=== PATIENT | female | born 1990 | race Caucasian/White ===

== ENCOUNTER → 2017-11-25 14:25 | Outpatient (CLI) | payer OTHER, SELFPAY ==
[2017-11-25 13:52] VITALS: BP 147/90; BMI 24.1
[2017-11-25 16:34] LABS: hCG Titer Quant., Serum 328 mIU/mL (<9 non-preg)
== END ==
PROVIDERS: Visit Provider Obstetrics & Gynecology
DX: O20.0 Threatened abortion (principal)
CPT/HCPCS: 36415; 84702

== ENCOUNTER → 2017-11-27 12:22 | Outpatient (CLI) | payer OTHER, SELFPAY ==
[2017-11-27 13:42] LABS: hCG Titer Quant., Serum 718 mIU/mL (<9 non-preg)
== END ==
PROVIDERS: Visit Provider Obstetrics & Gynecology
DX: O20.0 Threatened abortion (principal)
CPT/HCPCS: 36415; 84702

== ENCOUNTER → 2017-12-06 09:02 | Outpatient (CLI) | payer OTHER, SELFPAY ==
[2017-12-06 09:14] VITALS: BP 118/87; PULSE 103; RESP 18; TEMP 37.3; BMI 23.2
[2017-12-06] MEDS: Dextrose 5%-Lactated Ringers 1,000 ML 999 ML IV (09:24)
[2017-12-06] MEDS: Ondansetron 4 MG/2 ML Vial IV (09:25)
== END ==
PROVIDERS: Visit Provider Obstetrics & Gynecology
DX: E86.0 Dehydration (principal)
CPT/HCPCS: 96361; 96374; A4216; J2405

== ENCOUNTER → 2017-12-23 15:09 | Outpatient (CLI) | payer OTHER, SELFPAY ==
[2017-12-23 15:48] LABS: Absolute Lymphocyte Count 1.45 X10^3/ul (0.83-4.51); Absolute Neutrophil Count 6.9 X10^3/uL (2.0-7.7); Basophil# 0.01 X10^3/uL; Basophil% 0.1 % (0-1); Eosinophil# 0.09 X10^3/uL; Hematocrit 40.3 % (37-47); Hemoglobin 13.6 g/dl (12.0-15.0); Lymphocyte # 1.45 X10^3/ul (4.0); Lymphocyte % 15.9 % (19-41); Mean Corp Hgb Conc 33.7 g/gl (32-36); Mean Corpuscular Hgb 27.3 pg (27.0-32.0); Mean Corpuscular Volume 80.9 fL (81-99); Monocyte# 0.63 X10^3/uL; Monocyte% 6.9 % (0-10); Neutrophil # 6.93 X10^3/uL (2.7-7.7); Platelet Count 214 K/mm3 (150-450); RBC Distribution Width CV 14.9 % (11.6-14.6); RBC Distribution Width SD 44.1 fl (35.1-43.9); Red Blood Count 4.98 M/mm3 (4.2-5.4); White Blood Count 9.1 K/mm3 (4.4-11.0)
[2017-12-23 15:55] LABS: POSITIVE COUNT NO; POSITIVE DIFFERENTIAL NO; POSITIVE MORPHOLOGY NO
[2017-12-23 17:08] LABS: HIV - WCH Non-Reactive (Nonreactive); Rubella IgG 217.5 IU/mL
[2017-12-30 02:58] LABS: Rapid Plasmin Reagin (RPR) NONREACTIVE (NONREACTIVE)
[2018-01-04 11:35] LABS: HEPATITIS B SURFACE AG Negative (Negative)
== END ==
PROVIDERS: Visit Provider Obstetrics & Gynecology
DX: O21.9 Vomiting of pregnancy, unspecified (principal); Z12.4 Encounter for screening for malignant neoplasm of cervix
CPT/HCPCS: 36415; 81220; 85025; 86592; 86703; 86762; 86850; 86900; 87340

== ENCOUNTER → 2017-12-23 21:03 | Outpatient (CLI) | payer OTHER, SELFPAY ==
[2017-12-23 23:00] LABS: Chlamydia Trachomatis by PCR Negative (Negative); Neisserai gonorrhoeae by PCR Negative (Negative); Probe Check PASS; Sample Adequacy Control PASS; Specimen Processing Control PASS
[2017-12-28 14:40] LABS: HPV Reflexed? NOT INDICATED
== END ==
PROVIDERS: Visit Provider Obstetrics & Gynecology
DX: O21.9 Vomiting of pregnancy, unspecified (principal); Z12.4 Encounter for screening for malignant neoplasm of cervix; Z3A.00 Weeks of gestation of pregnancy not specified
CPT/HCPCS: 87086; 87088; 87186; 87491; 87591; 88175; G0145

== ENCOUNTER → 2018-01-16 14:08 | Outpatient (CLI) | payer OTHER, SELFPAY | PROVIDERS: Visit Provider Obstetrics & Gynecology Maternal & Fetal Medicine | DX: Z36.82 Encounter for antenatal screening for nuchal translucency (principal) | CPT/HCPCS: 36415 ==

== ENCOUNTER 2018-01-29 16:55 | Emergency (ER) | payer OTHER, SELFPAY ==
[2018-01-29 16:57] VITALS: BP 163/102; PULSE 81; RESP 16; TEMP 36.8; O2SAT 100; BMI 24.5
[2018-01-29] MEDS: proMETHazine 25 MG/ML Syringe 12.5 MG IV (17:42)
[2018-01-29] MEDS: 0.9% Normal Saline 1,000 ML 1000 ML IV (17:42)
[2018-01-29 18:11] LABS: Absolute Lymphocyte Count 1.16 X10^3/ul (0.83-4.51); Basophil# 0.01 X10^3/uL; Basophil% 0.1 % (0-1); Eosinophil# 0.03 X10^3/uL; Eosinophils% 0.4 % (0-5); Hematocrit 39.3 % (37-47); Lymphocyte # 1.16 X10^3/ul (4.0); Mean Corp Hgb Conc 35.6 g/gl (32-36); Mean Corpuscular Hgb 28.7 pg (27.0-32.0); Mean Corpuscular Volume 80.5 fL (81-99); Mean Platelet Vol. 11.7 fl (6.2-12.0); Monocyte# 0.59 X10^3/uL; Monocyte% 7.6 % (0-10); Neutrophil # 5.95 X10^3/uL (2.7-7.7); Neutrophil % 76.8 % (47-70); Platelet Count 177 K/mm3 (150-450); RBC Distribution Width CV 14.9 % (11.6-14.6); RBC Distribution Width SD 43.5 fl (35.1-43.9); Red Blood Count 4.88 M/mm3 (4.2-5.4); White Blood Count 7.8 K/mm3 (4.4-11.0)
[2018-01-29 18:12] LABS: POSITIVE COUNT NO; POSITIVE DIFFERENTIAL NO; POSITIVE MORPHOLOGY NO
[2018-01-29 18:23] LABS: Anion Gap 9 (5-15); BUN 8 mg/dL (7-18); BUN/Creat Ratio 10.2 RATIO (10-20); Calcium,Total 8.7 mg/dL (8.5-10.1); Chloride 108 mmol/L (98-107); Creatinine, Serum 0.78 mg/dL (0.55-1.02); EST Glomerular Filtration Rate 93 mL/min (>60); Est Glom Filt Rate - Afr Amer 113 mL/min (>60); Estimated Creatinine Clearance 88.83 ml/min; Glucose 76 mg/dL (74-106); Potassium 3.8 mmol/L (3.5-5.1); Sodium Level 140 mmol/L (136-145)
--- NOTE | 2018-01-29 18:33 | ED.DCSUM_ITS ---
- ER Visit Summary Date of Service: 01/29/18 Chief Complaint: Vomiting History of Present Illness: The patient is a 27 F 14 weeks who presents with vomiting. Over the past 3 days she has vomited about twice per day. She denies any hematemesis. She denies any abdominal pain. She denies fever or diarrhea. She was also complaining of some right ear discomfort. She denies any pelvic pain vaginal bleeding or vaginal discharge. Physical Examination: Afebrile vitals are unremarkable Heart regular rate and rhythm Lungs are clear Abdomen soft nontender Sternum is nontender Alert Test Results: CBC BMP unremarkable. Emergency Department Course and Treatment: She was treated with IV fluids and Phenergan. Although her initial blood pressure was recorded as 163/102 when repeated it was 104/80. She has tolerated p.o. on reevaluation. 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 Treatment Plan: [] Disposition: Discharge Impression: Vomiting This note was generated with [employer] dictation software. It may contain incorrect words, spelling, and punctuation that were not noted in review of the chart prior to signing ED Disposition - Plan for ED Patient: Chief Complaint: Nausea/Vomiting Referrals: Mikaela Davidson NP-C [Primary Care Provider] -
--- NOTE | 2018-01-29 18:38 | DCINST.ED_ITS ---
ED Disposition - Plan for ED Patient: Chief Complaint: Nausea/Vomiting Instructions: ED Nausea Vomiting Prescriptions: proMETHazine suppository [Phenergan Suppository] 25 mg RECTAL Q6H PRN PRN #6 suppos. PRN Reason: Nausea Referrals: Mikaela Davidson, [employer]ICLE [employer]IVER-C [Primary Care Provider] -
[2018-01-29 18:39] VITALS: BP 104/80; PULSE 60; RESP 16
== END 2018-01-29 18:54 | disposition home or self-care (01) ==
PROVIDERS: Emergency Provider Emergency Medicine; Family Provider Nurse Practitioner Family; PCP Nurse Practitioner Family
DX: O21.9 Vomiting of pregnancy, unspecified (principal); Z3A.14 14 weeks gestation of pregnancy
CPT/HCPCS: 80048; 85025; 96361; 96374; 99284; J7030; A4216

== ENCOUNTER → 2018-02-03 14:07 | Outpatient (CLI) | payer OTHER, SELFPAY | PROVIDERS: Family Provider Nurse Practitioner Family; PCP Nurse Practitioner Family; Visit Provider Obstetrics & Gynecology | DX: Z34.02 Encounter for supervision of normal first pregnancy, second trimester (principal) | CPT/HCPCS: 87086; 87088 ==

== ENCOUNTER → 2018-02-08 08:58 | Outpatient (CLI) | payer OTHER, SELFPAY ==
[2018-02-08 09:07] VITALS: BP 107/71; PULSE 82; RESP 14; TEMP 36.6; BMI 24.3
[2018-02-08] MEDS: Ondansetron 4 MG/2 ML Vial IV (09:15)
[2018-02-08] MEDS: Dextrose 5%-Lactated Ringers 1,000 ML 1000 ML IV (09:15)
== END ==
LOC: MEDOUTP 09:00
PROVIDERS: Family Provider Nurse Practitioner Family; PCP Nurse Practitioner Family; Visit Provider Obstetrics & Gynecology
DX: E86.0 Dehydration (principal)
CPT/HCPCS: 96361; 96374; A4216; J2405

== ENCOUNTER → 2018-02-20 12:00 | Outpatient (CLI) | payer OTHER, SELFPAY | PROVIDERS: Family Provider Nurse Practitioner Family; PCP Nurse Practitioner Family; Visit Provider Obstetrics & Gynecology Maternal & Fetal Medicine | DX: Z36.89 Encounter for other specified antenatal screening (principal) | CPT/HCPCS: 36415 ==

== ENCOUNTER → 2018-03-10 13:21 | Outpatient (CLI) | payer OTHER, SELFPAY ==
--- NOTE | 2018-03-10 14:00 | US_ITS ---
STUDY: SECOND AND THIRD TRIMESTER OBSTETRICAL ULTRASOUND REASON FOR EXAM: Female, 27 years old. Anatomy screening SCREENING FOR MALIGNANT NEOPLASM OF CERVIX LMP: TECHNIQUE: Transabdominal and Transvaginal PRIOR ULTRASOUND: None. FINDINGS: There is a single intrauterine fetus. The fetus is in a breech presentation. There is demonstrated cardiac activity with a heart rate of 160 bpm. There is a normal amniotic fluid volume. The largest amniotic fluid pocket measures 5.5 cm. The placenta is posterior in location and is not low lying. There are Grade 1 placental changes. The cervix measures 3 9 mm in length. The adnexal regions are not visualized. BIOMETRY: BPD: 45mm: 19 weeks, 5 days HC: 166mm: 19 weeks, 2 days AC: 152mm: 20 weeks, 3 days FL: 31mm: 19 weeks, 4 days CI: 79 FL/BPD: 68 FL/HC: FL/AC: 20 HC/AC: 1.09 age by current US: 19 weeks, 6 days. SARATH by current US: 07.29.18. Estimated weight: 319 grams, +/- 47 grams, 39 %. Age by LMP: 20 weeks, 0 days. SARATH by LMP: .10.03. ANATOMY: Gender: Female Cranium: Normal lateral ventricles. Normal choroid plexus. Normal cerebellum. Normal cisterna magna. Normal face, nose and lips. Chest: Normal 4-chamber heart. Abdomen/Pelvis: Normal diaphragm. Normal stomach. Normal abdominal wall. Normal cord insertion. Normal 3 vessel cord. Normal kidneys. Normal bladder. Spine: Normal cervical spine. Normal thoracic spine. Normal lumbar spine. Normal sacrum. Extremities: Normal bilateral upper extremities. Normal bilateral lower extremities . US/OB Anatomy Scan IMPRESSION: There is a single live intrauterine with a heart rate of 160 bpm. age by current US: 19 weeks, 6 days. SARATH by current US: 07.29.18. Normal anatomic survey. Normal-appearing cervix. Electronically Signed: Fox Rivera MD at 16:18 EDT , Service support ,
== END ==
PROVIDERS: Family Provider Nurse Practitioner Family; PCP Nurse Practitioner Family; Visit Provider Obstetrics & Gynecology
DX: O21.9 Vomiting of pregnancy, unspecified (principal)
CPT/HCPCS: 76805

== ENCOUNTER → 2018-05-12 15:51 | Outpatient (CLI) | payer OTHER, SELFPAY ==
[2018-05-12 17:32] LABS: Absolute Lymphocyte Count 0.93 X10^3/ul (0.83-4.51); Absolute Neutrophil Count 6.2 X10^3/uL (2.0-7.7); Basophil# 0.01 X10^3/uL; Basophil% 0.1 % (0-1); Eosinophil# 0.04 X10^3/uL; Eosinophils% 0.5 % (0-5); Hematocrit 36.4 % (37-47); Hemoglobin 11.9 g/dl (12.0-15.0); Lymphocyte # 0.93 X10^3/ul (4.0); Lymphocyte % 12.2 % (19-41); Mean Corp Hgb Conc 32.7 g/gl (32-36); Mean Corpuscular Hgb 28.6 pg (27.0-32.0); Mean Corpuscular Volume 87.5 fL (81-99); Mean Platelet Vol. 11.7 fl (6.2-12.0); Monocyte# 0.45 X10^3/uL; Monocyte% 5.9 % (0-10); Neutrophil % 81.2 % (47-70); Platelet Count 194 K/mm3 (150-450); RBC Distribution Width CV 13.1 % (11.6-14.6); RBC Distribution Width SD 42.2 fl (35.1-43.9); Red Blood Count 4.16 M/mm3 (4.2-5.4); White Blood Count 7.6 K/mm3 (4.4-11.0)
[2018-05-12 17:33] LABS: Glucose Challenge Gest 1H 50g 140 mg/dL (70-140)
[2018-05-12 17:40] LABS: POSITIVE COUNT NO; POSITIVE DIFFERENTIAL NO; POSITIVE MORPHOLOGY NO
== END ==
LOC: LAB 15:52
PROVIDERS: Nurse Practitioner Women's Health; Family Provider Nurse Practitioner Family; PCP Nurse Practitioner Family; Visit Provider Obstetrics & Gynecology
DX: O09.892 Supervision of other high risk pregnancies, second trimester (principal); Z3A.29 29 weeks gestation of pregnancy
CPT/HCPCS: 82950; 85025; 86850; 86900

== ENCOUNTER → 2018-05-18 06:45 | Outpatient (CLI) | payer OTHER, SELFPAY ==
[2018-05-18 09:18] LABS: Glucose GTT-Gestation. Fasting 76 mg/dL (<105)
== END ==
PROVIDERS: Nurse Practitioner Women's Health; Family Provider Nurse Practitioner Family; PCP Nurse Practitioner Family; Visit Provider Obstetrics & Gynecology
DX: R73.09 Other abnormal glucose (principal)
CPT/HCPCS: 36415; 82951; 82952

== ENCOUNTER 2018-06-16 08:00 | Outpatient (RCR) | payer OTHER, SELFPAY | END 2018-06-16 23:59 | LOC: NS 08:00 | PROVIDERS: Family Provider Nurse Practitioner Family; PCP Nurse Practitioner Family; Visit Provider Obstetrics & Gynecology | DX: O24.419 Gestational diabetes mellitus in pregnancy, unspecified control (principal); Z71.3 Dietary counseling and surveillance | CPT/HCPCS: 97802; G0108 ==

== ENCOUNTER → 2018-06-28 11:11 | Outpatient (CLI) | payer OTHER, SELFPAY ==
--- NOTE | 2018-06-28 11:23 | US_ITS ---
STUDY: SECOND AND THIRD TRIMESTER OBSTETRICAL ULTRASOUND - LIMITED REASON FOR EXAM: Female, 27 years old. Routine survey. History of gestational diabetes. LMP: October 21, 2017. PRIOR ULTRASOUND: Comparison is made with prior examination dated March 10, 2018. TECHNIQUE: Transabdominal ultrasound evaluation was performed. FINDINGS: There is a single intrauterine fetus. The fetus is in a cephalic presentation. There is demonstrated cardiac activity with a heart rate of 136 bpm. There is a normal amniotic fluid volume. The largest amniotic fluid pocket measures 4.0 cm x 3.8 cm. The amniotic fluid index (SHALONDA) is 13.6 cm. The placenta is posterior in location and is not low lying. There are Grade 0 placental changes. The cervix was not well visualized due to the position. BIOMETRY: BPD: 9.0 cm: 36 weeks, 2 days HC: 31.3 cm: 35 weeks, 1 days AC: 31.7 cm: 35 weeks, 5 days FL: 6.9 cm: 35 weeks, 4 days Age by LMP: 35 weeks, 5 days. SARATH by LMP: July 28, 2018. age by prior US: 35 weeks, 4 days. SARATH by prior US: July 29, 2018. age by current US: 35 weeks, 5 days. SARATH by current US: July 28, 2018. Estimated weight: 2726 grams, +/- 398 grams, 47 percentile. Gender: Female The placental cord insertion is located along the superior edge of the placenta. US/OB Limited With Biometrics IMPRESSION: Single live intrauterine gestation with a mean gestational age of 35 weeks and 5 days. The measurements are obtained they fall within normal expected range. Electronically Signed: Luiz Weaver MD at 15:44 EDT Tel [phone], Service support ,
== END ==
PROVIDERS: Family Provider Nurse Practitioner Family; PCP Nurse Practitioner Family; Visit Provider Obstetrics & Gynecology
DX: O24.419 Gestational diabetes mellitus in pregnancy, unspecified control (principal); O26.899 Other specified pregnancy related conditions, unspecified trimester; R30.0 Dysuria; Z3A.00 Weeks of gestation of pregnancy not specified
CPT/HCPCS: 76816; 87086; 87088

== ENCOUNTER 2018-06-29 17:00 | Outpatient (RCR) | payer OTHER, SELFPAY | END 2018-06-29 23:59 | LOC: DC 17:00 | PROVIDERS: Family Provider Nurse Practitioner Family; PCP Nurse Practitioner Family; Visit Provider Obstetrics & Gynecology | DX: O24.419 Gestational diabetes mellitus in pregnancy, unspecified control (principal) ==

== ENCOUNTER → 2018-06-30 18:20 | Outpatient (CLI) | payer OTHER, SELFPAY ==
[2018-06-30 20:11] LABS: Group B Strep DNA By PCR Negative (Negative); Internal Control PASS; Probe Check PASS; Specimen Processing Control PASS
== END ==
PROVIDERS: Visit Provider Obstetrics & Gynecology
DX: Z34.90 Encounter for supervision of normal pregnancy, unspecified, unspecified trimester (principal)
CPT/HCPCS: 87081; 87653

== ENCOUNTER 2018-07-02 01:45 | Inpatient (IN) | payer OTHER, SELFPAY ==
[2018-07-02 01:41] LABS: ROM Internal Control Test YES-OK TO RESULT pt. (Internal QC)
[2018-07-02 01:42] LABS: ROM Patient Test POSITIVE (Negative)
[2018-07-02] MEDS: Lactated Ringers 1,000 ML 50 ML IV ×2 (02:00→03:23)
[2018-07-02 02:06] LABS: Bedside Glucose 72 mg/dL (70-110)
[2018-07-02 02:10] VITALS: BMI 30.6
[2018-07-02] MEDS: Betamethasone/Betamethasone 30 MG/5 ML Vial 12 MG IM (02:10)
[2018-07-02 02:23] LABS: Hematocrit 36.4 % (37-47); Hemoglobin 12.5 g/dl (12.0-15.0); Mean Corp Hgb Conc 34.3 g/gl (32-36); Mean Corpuscular Hgb 28.9 pg (27.0-32.0); Mean Corpuscular Volume 84.1 fL (81-99); Mean Platelet Vol. 13.5 fl (6.2-12.0); Platelet Count 149 K/mm3 (150-450); RBC Distribution Width SD 39.3 fl (35.1-43.9); Red Blood Count 4.33 M/mm3 (4.2-5.4); White Blood Count 8.7 K/mm3 (4.4-11.0)
[2018-07-02 02:27] LABS: Scan Indicated on CBC? Y/N NO
[2018-07-02 02:29] LABS: AST(SGOT) 16 U/L (15-37); Alanine Aminotransfer ALT/SGPT 24 U/L (13-56); EST Glomerular Filtration Rate 79 mL/min (>60); Est Glom Filt Rate - Afr Amer 95 mL/min (>60); Estimated Creatinine Clearance 76.98 ml/min
[2018-07-02 02:36] LABS: International Normalized Ratio 0.9; Prothrombin Time (Protime)PT. 11.6 SECONDS (11.7-14.9)
[2018-07-02 02:37] LABS: Partial Thromboplast Time 26.4 Seconds (24.1-36.2)
[2018-07-02 02:43] LABS: Protein, Urine (Random) 20.5 mg/dL (<11.9); Protein:Creat Ratio 239 mg/g CRE (0-200)
[2018-07-02 03:31] LABS: Bedside Glucose 83 mg/dL (70-110)
[2018-07-02] MEDS: Ondansetron 4 MG/2 ML Vial IV (03:46)
[2018-07-02] MEDS: fentaNYL-bupivacaine (epidural) 100 ML BAG EPIDURAL (03:47)
[2018-07-02 04:41] LABS: Bedside Glucose 85 mg/dL (70-110)
[2018-07-02 05:51] LABS: Bedside Glucose 84 mg/dL (70-110)
--- NOTE | 2018-07-02 08:37 | HP.PCM_ITS ---
- Problem List (1) Gestational diabetes mellitus (GDM) affecting Status: Acute Comment: diet and nutrition counseling ordered, growth us 36 weeks (2) screening encounter Status: Acute Comment: NT done- 01/16/18 1st trimester screen- 01/16/18; 2nd trimester 02/20/18 Interpretation screen negative (3) Asymptomatic bacteriuria during in first trimester Status: Acute Comment: macrobid, repeat urine culture negative (4) Rh negative status during Status: Acute Qualifiers: Comment: rhogam PRN and at 28 weeks (5) Supervision of normal Status: Acute Qualifiers: Comment: PRR SARATH 07/28/18 girl Gil Thiago (6) Nausea/vomiting in Status: Acute Comment: reglan, prn phenergan (7) premature rupture of membranes (PPROM) with onset of labor within 24 hours of rupture in third trimester, antepartum Status: Acute History Date of Admission: 07/02/18 Final SARATH: 07/28/18 Gestational age: 36 Weeks and 2 Days History of this : This is a 27 year-old, at 36 weeks gestational age presetns with PPROM IAL. she has had a complicated by GMA1 but denies any other complications. she developed clear LOF this morning and irregular ctx. she denies any vb and admits good fm. BS have been well controlled and growth has been normal. Medical History: Medical History (Last Reviewed 06/30/18 @ 15:53 by Porsche Li) Gestational diabetes O24.419 Allergies penicillin G Allergy (Mild, Verified 07/02/18 01:29) Rash Home Medications: Home Medications vitamin,calcium,kpwjdvnb-fvcq-dfqoz acid tablet 1 tab PO QDAY 11/25/17 Smoking Status: Never smoker Alcohol: None Number of Fetus(es): 1 Heart Tracin moderate varibility reactive no decels cat I TOCO Analysis: irregular History Past Pregnancies: Past Pregnancies Delivery Date Name GA/Weeks Outcome Route Weight Infant Gender Labor Length Anesthesia Delivery Location Provider FOB Labs: Mom's Labs & Results 07/02/18 07/02/18 07/02/18 01:08 02:00 02:00 WBC 8.7 RBC 4.33 Hgb 12.5 Hct 36.4 L MCV 84.1 MCH 28.9 MCHC 34.3 RDW 13.0 RDW Differential 39.3 Plt Count 149 L MPV 13.5 H PT INR APTT Creatinine Estim Creat Clear Calc Est GFR (MDRD) Af Amer Est GFR (MDRD) Non-Af Uric Acid AST ALT U Random Total Protein Urine Creatinine Protein/Creatinin Ratio Vag Amniotic Fld Detect POSITIVE H POC Glucose Blood Type O NEGATIVE Antibody Screen TNP 07/02/18 07/02/18 07/02/18 02:00 02:00 02:00 WBC RBC Hgb Hct MCV MCH MCHC RDW RDW Differential Plt Count MPV PT 11.6 L INR 0.9 APTT 26.4 Creatinine 0.90 Estim Creat Clear Calc 76.98 Est GFR (MDRD) Af Amer 95 Est GFR (MDRD) Non-Af 79 Uric Acid 6.0 AST 16 ALT 24 U Random Total Protein Urine Creatinine Protein/Creatinin Ratio Vag Amniotic Fld Detect POC Glucose 72 Blood Type Antibody Screen 07/02/18 07/02/18 07/02/18 02:00 02:20 03:19 WBC RBC Hgb Hct MCV MCH MCHC RDW RDW Differential Plt Count MPV PT INR APTT Creatinine Estim Creat Clear Calc Est GFR (MDRD) Af Amer Est GFR (MDRD) Non-Af Uric Acid AST ALT U Random Total Protein 20.5 H Urine Creatinine 85.70 Protein/Creatinin Ratio 239 H Vag Amniotic Fld Detect POC Glucose 83 Blood Type Antibody Screen NEGATIVE 07/02/18 07/02/18 04:33 05:46 WBC RBC Hgb Hct MCV MCH MCHC RDW RDW Differential Plt Count MPV PT INR APTT Creatinine Estim Creat Clear Calc Est GFR (MDRD) Af Amer Est GFR (MDRD) Non-Af Uric Acid AST ALT U Random Total Protein Urine Creatinine Protein/Creatinin Ratio Vag Amniotic Fld Detect POC Glucose 85 84 Blood Type Antibody Screen Course Did the patient receive Yes care? Labs Blood Type: O RH: NEGATIVE RPR/VDRL/Syphilis Nonreactive Rubella status Immune HbSAg Negative Date Done: 12/23/17 Chlamydia Negative Gonorrhea Negative HIV/AIDS Non-Reactive Group B Strep: Negative Current Obstetrical History Gestational Diabetes Yes Incompetent Cervix No Infertility No IUGR No Macrosomia No Hypertension/Pre-eclampsia Yes Placenta Previa/Abruption No PTL/PROM No Uterine anomaly No Oligohydramnios No Polyhydramnios No Multiple gestation No Past Medical History Asthma No Diabetes No Hypertension No Heart disease No Mitral valve prolapse No Neurologic/Seizure disorder/ No Migraines Kidney disease No Liver disease No Varicosities No Clotting disorders/Hx of DVT No Thyroid Dysfunction No Other medical diseases No Psychiatric disorders No Major trauma No Abnormal PAP smear No Sleep apnea No Mammogram in the last 2 years No Social History Marital Status: Alleged father Thiago Hx Smoking No Smoking Status Never smoker Expected Delivery Method: Spontaneous Vaginal Review of Systems Constitutional: Denies: Fever, Malaise Eyes: Denies: Blurred vision, Vision Change HEENT: Denies: Head Aches, Visual Changes Cardiovascular: Denies: Chest Pain, Palpitations Respiratory: Denies: Cough, Shortness of Breath, Wheezing Gastrointestinal: Denies: Abdominal Pain, Diarrhea, Nausea, Vomiting Genitourinary: Denies: Dysuria, Hematuria Musculoskeletal: Denies: Joint Pain, Muscle pain Skin: Denies: Lesions, Rash Neurological: Denies: Blurred vision, Focal weakness, Headaches Psychiatric: Denies: Anxiety, Depression Endocrine: Denies: Heat/ Cold Intolerance Hematologic/ Lymphatic: Denies: Easy Bruising, Easy Bleeding Physical Exam General: Alert, Cooperative, No apparent distress HEENT: Atraumatic, Normocephalic. Negative for: Thyromegaly, Lymphadenopathy Cardiovascular: Regular rate Lungs: Normal air movement Abdomen: Soft, Non Tender, Gravid Neurological: Deep Tendon Reflexes 2+/4 and Symmetrical, Neuro grossly intact. Negative for: Clonus SENIOR MAINTENANCE MECHANIC: Normal external genitalia. Negative for: Vulvar lesions Estimated gestational size: Appropriate for gestational size Presentation: Cephalic Cervix Dilation (cm): 3 Assessment/Plan All Active Problems (Last Reviewed 06/30/18 @ 15:53 by Porsche Li) premature rupture of membranes (PPROM) with onset of labor within 24 hours of rupture in third trimester, antepartum (Acute) Gestational diabetes mellitus (GDM) affecting (Acute) screening encounter (Acute) Asymptomatic bacteriuria during in first trimester (Acute) Rh negative status during (Acute) Supervision of normal (Acute) Nausea/vomiting in (Acute) Abnormal glucose (Resolved) This is a 27 year-old, at 36 weeks gestational age. Patient presents IAL, plan expectant management for , pitocin/AROM PRN if needed. Pain management: plans epidural. GBS neg. Management of any complications: PPROM, celestone ordered I have reviewed the [facility], [facility] and made any clinically relevant updates.
[2018-07-02] MEDS: Oxytocin 30 units/NS 500 ml 30 UNITS/500 ML IV.SOLN 334 UNITS IV (09:28)
[2018-07-02 10:36] LABS: Bedside Glucose 112 mg/dL (70-110)
[2018-07-02 12:00] VITALS: BP 141/86; PULSE 86; RESP 18; TEMP 36.8
[2018-07-02] MEDS: Prenatal Vits Tablet 1 TABLET PO (14:31)
--- NOTE | 2018-07-02 15:08 | NURSING ---
info obtained from anesthesia record and QS charting
[2018-07-02 17:09] VITALS: BP 131/82; PULSE 70; RESP 18; TEMP 36.5
[2018-07-02 19:30] VITALS: BP 126/83; PULSE 74; RESP 16; TEMP 37.2
[2018-07-02 23:40] VITALS: BP 123/84; PULSE 57; RESP 16; TEMP 36.6
[2018-07-03 04:20] VITALS: BP 134/87; PULSE 63; RESP 16; TEMP 36.6
[2018-07-03 06:30] LABS: Bedside Glucose 69 mg/dL (70-110)
[2018-07-03 07:25] VITALS: BP 129/84; PULSE 70; RESP 16; TEMP 36.7; O2SAT 97
--- NOTE | 2018-07-03 07:55 | PCM.PN.OB ---
Patient Problems: Active and Suspected Problems (Last Reviewed 06/30/18 @ 15:53 by Porsche Li) premature rupture of membranes (PPROM) with onset of labor within 24 hours of rupture in third trimester, antepartum (Acute) Subjective: No CP, SOB. Doing well. FBS this am 69 - Physical Exam General: Alert, Oriented x3 Abdomen: Soft, Non Tender, - - FF below U Vital Signs Temp Pulse Resp BP 97.9 F 63 16 134/87 H 07/03/18 04:20 07/03/18 04:20 07/03/18 04:20 07/03/18 04:20 Oxygen Delivery Method Room Air Weight: 172 lb 13.478 oz Body Mass Index (BMI) 30.6 Intake and Output for Last 24 Hours 07/01/18 07/02/18 07/03/18 23:59 23:59 23:59 Output Total 1250 / 1250 Balance -1250 / -1250 POC Glucose 07/03/18 07/02/18 06:26 10:27 POC Glucose 69 L 112 H Medical Necessity - Tobacco Use Smoking Status: Never smoker Assessment/Plan All Active Problems (Last Reviewed 06/30/18 @ 15:53 by Porsche Li) premature rupture of membranes (PPROM) with onset of labor within 24 hours of rupture in third trimester, antepartum (Acute) Gestational diabetes mellitus (GDM) affecting (Acute) screening encounter (Acute) Asymptomatic bacteriuria during in first trimester (Acute) Rh negative status during (Acute) Supervision of normal (Acute) Nausea/vomiting in (Acute) Abnormal glucose (Resolved) GDM PPD #1 Routine care. Blood glucose normal today. . Rh negative
[2018-07-03] MEDS: Prenatal Vits Tablet 1 TABLET PO (09:21)
[2018-07-03 13:55] VITALS: BP 135/85; PULSE 93; RESP 17; TEMP 36.9; O2SAT 96
[2018-07-03 20:30] VITALS: BP 130/79; PULSE 97; RESP 16; TEMP 36.7; O2SAT 94
[2018-07-04 02:20] VITALS: BP 133/88; PULSE 71; RESP 16; TEMP 36.4; O2SAT 98
[2018-07-04] MEDS: Acetaminophen 500 MG Tablet 1000 MG PO ×2 (02:22→09:29)
--- NOTE | 2018-07-04 07:47 | PCM.PN.OB ---
Patient Problems: Active and Suspected Problems (Last Reviewed 06/30/18 @ 15:53 by Porsche Li) premature rupture of membranes (PPROM) with onset of labor within 24 hours of rupture in third trimester, antepartum (Acute) Subjective: No CP, SOB. Doing well. Pain controlled with OTC meds - Physical Exam General: Alert, Oriented x3 Abdomen: Soft, Non Tender, - - FF below U Vital Signs Temp Pulse Resp BP Pulse Ox 97.6 F L 71 16 133/88 H 98 07/04/18 02:20 07/04/18 02:20 07/04/18 02:20 07/04/18 02:20 07/04/18 02:20 Oxygen Delivery Method Room Air Weight: 172 lb 13.478 oz Body Mass Index (BMI) 30.6 Intake and Output for Last 24 Hours 07/02/18 07/03/18 07/04/18 23:59 23:59 23:59 Output Total 1250 / 1250 Balance -1250 / -1250 Medical Necessity - Tobacco Use Smoking Status: Never smoker Assessment/Plan All Active Problems (Last Reviewed 06/30/18 @ 15:53 by Porsche Li) premature rupture of membranes (PPROM) with onset of labor within 24 hours of rupture in third trimester, antepartum (Acute) Gestational diabetes mellitus (GDM) affecting (Acute) screening encounter (Acute) Asymptomatic bacteriuria during in first trimester (Acute) Rh negative status during (Acute) Supervision of normal (Acute) Nausea/vomiting in (Acute) Abnormal glucose (Resolved) PPD #2 Routine care. OTC pain med prn. Home today. . Plans mirena IUD at 6wk pp visit.
--- NOTE | 2018-07-04 07:49 | PCM.DCVAG ---
Additional Instructions: If you experience any of the following, contact your healthcare provider. Bleeding that soaks a pad every hour for 2 hours Fever 100.4 or higher Unrelieved incision or abdominal pain Swelling, redness, discharge or bleeding from your incision or episiotomy site Your incision begins to separate Problems urinating (including inability to urinate or burning while urinating). Visual changes Severe headache Flu-like symptoms Pain or redness in one of both of your breasts Pain, warmth, tenderness or swelling in your legs, especially the calf area Frequent nausea and vomiting Symptoms of depression or anxiety If you experience any of the following, call 911 or go to the nearest Emergency Room. Chest pain Problems breathing Seizure activity Partial or complete paralysis of a body part, slurred speech, weakness or drooping of the face, or a sudden inability to walk or hold your balance Allergies/Adverse Reactions: Allergies penicillin G Allergy (Mild, Verified 07/02/18 01:29) Rash Medications to take at Discharge vitamin,calcium,nxwcdvuv-lpba-nmvoy acid tablet 1 tab PO QDAY 11/25/17 Primary Care Physician: Mikaela Davidson NP-C [Primary Care Provider] - Test Results: Test results from this visit will be discussed in further detail at your follow-up appointment, if applicable.
--- NOTE | 2018-07-04 07:50 | DCINST_ITS ---
Additional Instructions: If you experience any of the following, contact your healthcare provider. * Bleeding that soaks a pad every hour for 2 hours * Fever 100.4 or higher * Unrelieved incision or abdominal pain * Swelling, redness, discharge or bleeding from your incision or episiotomy site * Your incision begins to separate * Problems urinating (including inability to urinate or burning while urinating) . * Visual changes * Severe headache * Flu-like symptoms * Pain or redness in one of both of your breasts * Pain, warmth, tenderness or swelling in your legs, especially the calf area * Frequent nausea and vomiting * Symptoms of depression or anxiety If you experience any of the following, call 911 or go to the nearest Emergency Room. * Chest pain * Problems breathing * Seizure activity * Partial or complete paralysis of a body part, slurred speech, weakness or drooping of the face, or a sudden inability to walk or hold your balance Allergies/Adverse Reactions: Allergies penicillin G Allergy (Mild, Verified 07/02/18 01:29) Rash Medications to take at Discharge vitamin,calcium,kdclcbyj-dirq-qdaty acid tablet 1 tab PO QDAY 11/25/17 Primary Care Physician: Mikaela Davidson NP-C [Primary Care Provider] - Test Results: Test results from this visit will be discussed in further detail at your follow- up appointment, if applicable.
[2018-07-04 09:00] VITALS: BP 149/92; PULSE 77; RESP 16; TEMP 36.2
[2018-07-04] MEDS: Prenatal Vits Tablet 1 TABLET PO (09:29)
--- NOTE | 2018-07-06 22:23 | PCM.OB.VAG ---
- Problem List (1) Gestational diabetes mellitus (GDM) affecting Status: Acute Comment: diet and nutrition counseling ordered, growth us 36 weeks (2) screening encounter Status: Acute Comment: NT done- 01/16/18 1st trimester screen- 01/16/18; 2nd trimester 02/20/18 Interpretation screen negative (3) Asymptomatic bacteriuria during in first trimester Status: Acute Comment: macrobid, repeat urine culture negative (4) Rh negative status during Status: Acute Qualifiers: Comment: rhogam PRN and at 28 weeks (5) Supervision of normal Status: Acute Qualifiers: Comment: PRR SARATH 07/28/18 girl Gil Thiago (6) Nausea/vomiting in Status: Acute Comment: reglan, prn phenergan (7) premature rupture of membranes (PPROM) with onset of labor within 24 hours of rupture in third trimester, antepartum Status: Acute Vaginal Delivery Maternal Presentation: Active Labor, Spontaneous Rupture of Membranes Amniotic Membrane Rupture Type: Spontaneous at home Amniotic Fluid Description: Clear Final SARATH: 07/28/18 Gestational age: 36 Weeks and 6 Days Date of Procedure: 07/02/18 Pre-Operative Diagnosis: P PROM Post-Operative Diagnosis: Same Surgery/ Procedure Performed: Spontaneous Vaginal Delivery Description of Procedure: Patient began pushing and delivered the head in the DOTTIE presentation. The head was delivered atraumatically. The anterior and posterior shoulders delivered without complication followed by the rest of the and the infant was placed on the maternal abdomen. Delayed cord clamping was employed for approximately 60 seconds. Cord was clamped and cut and gentle traction was applied to the cord and the placenta delivered spontaneously immediately following it was noted to be intact with three-vessel cord. Patient and tolerated delivery well. Presentation: DOTTIE Placental Delivery Description: Spontaneous Placenta Disposition: [facility] Cord Vessel Description: 3 Vessels Infant A gender: Female Medications given after delivery: IV Pitocin Complications: None
== END 2018-07-04 10:05 | disposition home or self-care (01) | DRG 775 ==
LOC: WPOUT 01:46
PROVIDERS: Admitting Provider Obstetrics & Gynecology; Family Provider Nurse Practitioner Family; PCP Nurse Practitioner Family; Visit Provider Obstetrics & Gynecology
DX: O42.013 Preterm premature rupture of membranes, onset of labor within 24 hours of rupture, third trimester (principal); O24.420 Gestational diabetes mellitus in childbirth, diet controlled; Z3A.36 36 weeks gestation of pregnancy; Z37.0 Single live birth
CPT/HCPCS: 59025; 59050; 82565; 82570; 82962; 84112; 84156; 84450; 84460; 84550; 85027; 85610; 85730; 86850; 86900; 99218; J7120; G0378; J0702; J2405

== ENCOUNTER → 2018-08-23 06:49 | Outpatient (CLI) | payer OTHER, SELFPAY ==
[2018-08-23 10:18] LABS: Glucose 2 Hour Postprandial 87 mg/dL (<140)
== END ==
PROVIDERS: Family Provider Nurse Practitioner Family; PCP Nurse Practitioner Family; Referring Provider Obstetrics & Gynecology; Visit Provider Obstetrics & Gynecology
DX: O24.419 Gestational diabetes mellitus in pregnancy, unspecified control (principal); Z3A.00 Weeks of gestation of pregnancy not specified
CPT/HCPCS: 36415; 82950

== ENCOUNTER → 2019-12-06 | Outpatient (CLI) | payer BC, SELFPAY ==
[2019-12-06 11:33] VITALS: BMI 28.3
[2019-12-06 15:28] LABS: Chlamydia Trachomatis by PCR Negative (Negative); Neisserai gonorrhoeae by PCR Negative (Negative); Probe Check PASS; Sample Adequacy Control PASS; Specimen Processing Control PASS
== END | disposition home or self-care (01) ==
LOC: LABSPEC 12:55
PROVIDERS: Referring Provider Obstetrics & Gynecology; Visit Provider Obstetrics & Gynecology
DX: Z34.80 Encounter for supervision of other normal pregnancy, unspecified trimester (principal)
CPT/HCPCS: 87491; 87591

== ENCOUNTER → 2019-12-12 08:16 | Outpatient (CLI) | payer BC, SELFPAY ==
[2019-12-06 11:33] VITALS: BMI 28.3
[2019-12-12 09:28] LABS: Absolute Lymphocyte Count 0.74 X10^3/uL (0.83-4.51); Absolute Neutrophil Count 5.6 X10^3/uL (2.0-7.7); Basophil# 0.01 X10^3/uL; Basophil% 0.1 % (0-1); Eosinophil# 0.04 X10^3/uL; Eosinophils% 0.6 % (0-5); Hematocrit 40.7 % (37-47); Hemoglobin 13.7 g/dL (12.0-15.0); Lymphocyte # 0.74 X10^3/ul (4.0); Lymphocyte % 10.9 % (19-41); Mean Corp Hgb Conc 33.7 g/dL (32-36); Mean Corpuscular Hgb 28.7 pg (27.0-32.0); Mean Corpuscular Volume 85.1 fL (81-99); Mean Platelet Vol. 11.9 fl (6.2-12.0); Monocyte# 0.41 X10^3/uL; NRBC Flagged by Analyzer 0 % (0-5); Neutrophil # 5.58 X10^3/uL (2.7-7.7); Neutrophil % 81.8 % (47-70); Platelet Count 199 K/mm3 (150-450); RBC Distribution Width CV 13.5 % (11.6-14.6); RBC Distribution Width SD 42.5 fl (35.1-43.9); Red Blood Count 4.78 M/mm3 (4.2-5.4); White Blood Count 6.8 K/mm3 (4.4-11.0)
[2019-12-12 09:31] LABS: NATERA MAILED SPECIMEN
[2019-12-12 13:01] LABS: HIV - WCH Non-Reactive (Nonreactive); Hepatitis B Surface Antigen Non-Reactive (Nonreactive); Hepatitis C Antibody Non-Reactive (Nonreactive); Rubella IgG 235.1 IU/mL
[2019-12-13 01:05] LABS: Rapid Plasmin Reagin (RPR) NONREACTIVE (NONREACTIVE)
== END ==
PROVIDERS: Referring Provider Obstetrics & Gynecology; Visit Provider Obstetrics & Gynecology
DX: Z34.81 Encounter for supervision of other normal pregnancy, first trimester (principal); Z31.430 Encounter of female for testing for genetic disease carrier status for procreative management
CPT/HCPCS: 36415; 85025; 86592; 86703; 86762; 86803; 86850; 86900; 86901; 87340

== ENCOUNTER → 2019-12-26 14:09 | Outpatient (CLI) | payer BC, SELFPAY ==
[2019-12-06 11:33] VITALS: BMI 28.3
[2019-12-26 15:23] LABS: NATERA MAILED SPECIMEN
== END ==
PROVIDERS: Referring Provider Obstetrics & Gynecology; Visit Provider Obstetrics & Gynecology
DX: Z34.82 Encounter for supervision of other normal pregnancy, second trimester (principal)

== ENCOUNTER → 2020-01-01 | Outpatient (CLI) | payer BC, SELFPAY ==
[2019-12-06 11:33] VITALS: BMI 28.3
--- NOTE | 2020-01-01 09:23 | US_ITS ---
STUDY: FIRST TRIMESTER OBSTETRICAL ULTRASOUND (TWINS) REASON FOR EXAM: Female, 29 years old. LMP: LIGHT PINK SPOTTING TODAY TECHNIQUE: Transabdominal TECHNICAL QUALITY: Adequate. COMPARISON: None. FINDINGS: There are two demonstrated intrauterine gestational sacs. The amniotic membrane cannot be visualized. The estimated gestation age (EGA) by LMP is 12 weeks, 6 days. The estimated date of delivery (SARATH) by LMP is July 09, 2020. BABY A The mean sac diameter (MSD) measure 5.64 cm, There is no demonstrated yolk sac. There is visualization of an embryo. The crown-rump length (CRL) measures 6 cm, indicating an estimated gestational age (EGA) of 12 weeks, 4 days. The estimated gestation age (EGA) by US is 12 weeks, 4 days. The estimated date of delivery (SARATH) by US is July 09, 2020. There is demonstrated cardiac activity with a heart rate 156 bpm. Anterior placenta. BABY B The mean sac diameter (MSD) measure 5.9 cm. There is no demonstrated yolk sac. There is visualization of an embryo. The crown-rump length (CRL) measures 5.94 cm, indicating an estimated gestational age (EGA) of 12 weeks, 4 days. The estimated gestation age (EGA) by US is 12 weeks, 4 days. The estimated date of delivery (SARATH) by US is July 09, 2020. There is demonstrated cardiac activity with a heart rate 153 bpm. MATERNAL ANATOMY The uterus measures 12.6 cm x 10.6 cm x 7.5 cm. There is no demonstrated uterine fibroid. The cervix is closed. The cervix measures 3.84 cm in length. The adnexa were not visualized. There is no fluid in the cul de sac. Anterior placenta. US/Init OB < 14Wks US IMPRESSION: Live intrauterine twin gestation with mean gestational age of 12 weeks and 4 days. Electronically Signed: Luiz Weaver, at 11:58 EDT , Service support ,
== END | disposition home or self-care (01) ==
LOC: US 09:23
PROVIDERS: Referring Provider Nurse Practitioner Women's Health; Visit Provider Nurse Practitioner Women's Health
DX: Z34.80 Encounter for supervision of other normal pregnancy, unspecified trimester (principal)
CPT/HCPCS: 76801

== ENCOUNTER → 2020-01-03 | Outpatient (CLI) | payer BC, SELFPAY ==
[2019-12-06 11:33] VITALS: BMI 28.3
== END | disposition home or self-care (01) ==
LOC: LAB 13:59
PROVIDERS: Referring Provider Medical Genetics Clinical Genetics (M.D.); Visit Provider Medical Genetics Clinical Genetics (M.D.)
DX: Z36.0 Encounter for antenatal screening for chromosomal anomalies (principal)
CPT/HCPCS: 36415

== ENCOUNTER → 2020-02-01 | Outpatient (CLI) | payer BC, SELFPAY ==
[2020-02-01 09:42] VITALS: BMI 28.3
[2020-02-01 11:48] LABS: ALB/GLOB Ratio 0.9 RATIO (0.9-2.4); AST(SGOT) 10 U/L (15-37); Alanine Aminotransfer ALT/SGPT 21 U/L (13-56); Albumin, Serum 3.5 g/dL (3.2-5.0); Alkaline Phosphatase 41 U/L (45-117); Anion Gap 7 (5-15); BUN 10 mg/dL (7-18); BUN/Creat Ratio 14.5 RATIO (10-20); Calcium,Total 8.7 mg/dL (8.5-10.1); Chloride 107 mmol/L (98-107); Cholesterol 200 mg/dL (200); Creatinine, Serum 0.69 mg/dL (0.55-1.02); EST Glomerular Filtration Rate 106 mL/min (>60); Est Glom Filt Rate - Afr Amer 129 mL/min (>60); Globulin 3.7 g/dL (2.2-4.2); Glucose 98 mg/dL (74-106); High Density Lipoprotein 85 mg/dL; Potassium 4.1 mmol/L (3.5-5.1); Protein, Total 7.2 g/dL (6.4-8.2); Sodium Level 139 mmol/L (136-145); Triglycerides 178 mg/dL; Very Low Density Lipoprotein 36 mg/dL (5-40)
== END | disposition home or self-care (01) ==
LOC: LABSPEC 10:52
PROVIDERS: PCP Internal Medicine; Referring Provider Internal Medicine; Visit Provider Internal Medicine
DX: Z00.00 Encounter for general adult medical examination without abnormal findings (principal)
CPT/HCPCS: 80053; 80061

== ENCOUNTER 2020-02-26 21:34 | Emergency (ER) | payer BC, SELFPAY ==
[2020-02-12 08:19] VITALS: BMI 28.3
[2020-02-26 21:35] VITALS: BP 137/81; PULSE 105; RESP 18; TEMP 36.8; O2SAT 100; BMI 27.3
--- NOTE | 2020-02-26 21:50 | ED.VISSUMM ---
- ER Visit Summary Date of Service: 02/26/20 Chief Complaint: [Spitting up blood] History of Present Illness: The patient is a 29 F [presents the emergency department with complaint of spitting up blood about half an hour ago. Patient states that she was playing a game and she started laughing and then coughing and spit up some clear spit that had blood in it without clots. Patient denies any chest pain or shortness of breath. She denies any abdominal pain. Patient is currently with twins. She is had no recent illness. She denies any fever or cough. She has [place] no complaints at this time. She is never had this happen before. She denies any nosebleeds. She denies any blood thinners. Patient's been feeling the babies move. She is with twins. Vaginal bleeding. No abdominal pain.] Physical Examination: [HEENT-PERRLA, EOMI. Cranial nerves II through XII grossly intact. TMs clear. Mucous membranes moist. No adenopathy. No evidence of bleeding from the nasal vaults. Pharynx is normal without any evidence of bleeding. Cardiovascular-regular rate and rhythm without murmur or ectopy Lungs-clear to auscultation, chest wall stable without crepitus or subcu emphysema Abdomen-normoactive bowel sounds, soft, nontender, no rebound or rigidity, no peritoneal signs. Extremities-intact ?4, normal range of motion, normal pulses, atraumatic] Test Results: [None indicated] Emergency Department Course and Treatment: [I discussed with patient possibly doing some further investigations into possibility of PE although it is unclear if this may have been [place] type tear or just irritation from forceful cough which is my suspicion. She is not had any chest pain or shortness of breath leading up to this. My suspicion for PE is very low however she is and discussed possibly obtaining a d-dimer which given the fact that she is may be elevated and then potentially obtaining a CT scan of her chest to evaluate further given that she is slightly tachycardic. Patient is comfortable not pursuing any other diagnostic modalities for PE at this time I think this is reasonable. Patient is advised to return if chest pain persistent hemoptysis increasing shortness of breath, or condition should worsen anyway.] Treatment Plan: [Low up with primary care physician within next 3 to 5 days.] Disposition: [Discharged home in stable condition.] Impression: [Hemoptysis-etiology uncertain] This note was generated with [employer] dictation software. It may contain incorrect words, spelling, and punctuation that were not noted in review of the chart prior to signing ED Disposition - Plan for ED Patient: Referrals: Jaspreet Cottrell MD [Primary Care Provider] -
--- NOTE | 2020-02-26 21:53 | ED.DEP ---
ED Disposition - Plan for ED Patient: Instructions: ED Hemoptysis Referrals: Jaspreet Cottrell MD [Primary Care Provider] - 3-5 Days
== END 2020-02-26 22:04 | disposition home or self-care (01) ==
LOC: ED 22:02
PROVIDERS: Emergency Provider Emergency Medicine; PCP Internal Medicine
DX: O26.899 Other specified pregnancy related conditions, unspecified trimester (principal); R04.2 Hemoptysis; O30.009 Twin pregnancy, unspecified number of placenta and unspecified number of amniotic sacs, unspecified trimester; O24.419 Gestational diabetes mellitus in pregnancy, unspecified control; O99.340 Other mental disorders complicating pregnancy, unspecified trimester; F41.9 Anxiety disorder, unspecified; Z79.899 Other long term (current) drug therapy; Z3A.00 Weeks of gestation of pregnancy not specified
CPT/HCPCS: 99282

== ENCOUNTER → 2020-04-11 | Outpatient (CLI) | payer BC, SELFPAY ==
[2020-04-11 14:04] VITALS: BMI 27.3
[2020-04-11 15:13] LABS: Absolute Lymphocyte Count 1.14 X10^3/uL (0.83-4.51); Absolute Neutrophil Count 6.2 X10^3/uL (2.0-7.7); Basophil# 0.01 X10^3/uL; Basophil% 0.1 % (0-1); Eosinophil# 0.07 X10^3/uL; Eosinophils% 0.8 % (0-5); Hematocrit 36.7 % (37-47); Hemoglobin 12.1 g/dL (12.0-15.0); Lymphocyte # 1.14 X10^3/ul (4.0); Lymphocyte % 13.4 % (19-41); Mean Corpuscular Hgb 29.2 pg (27.0-32.0); Mean Corpuscular Volume 88.4 fL (81-99); Mean Platelet Vol. 11.3 fl (6.2-12.0); Monocyte% 11.8 % (0-10); NRBC Flagged by Analyzer 0 % (0-5); Neutrophil # 6.22 X10^3/uL (2.7-7.7); Neutrophil % 73.2 % (47-70); Platelet Count 226 K/mm3 (150-450); RBC Distribution Width CV 12.4 % (11.6-14.6); RBC Distribution Width SD 39.9 fl (35.1-43.9); Red Blood Count 4.15 M/mm3 (4.2-5.4); White Blood Count 8.5 K/mm3 (4.4-11.0)
== END | disposition home or self-care (01) ==
LOC: LAB 14:53
PROVIDERS: PCP Internal Medicine; Referring Provider Obstetrics & Gynecology; Visit Provider Obstetrics & Gynecology
DX: O26.899 Other specified pregnancy related conditions, unspecified trimester (principal); Z67.91 Unspecified blood type, Rh negative; Z3A.00 Weeks of gestation of pregnancy not specified
CPT/HCPCS: 36415; 85025; 86850; 86900; 86901

== ENCOUNTER → 2020-04-24 | Outpatient (CLI) | payer BC, SELFPAY ==
[2020-04-11 14:04] VITALS: BMI 27.3
--- NOTE | 2020-04-24 15:22 | US_ITS ---
STUDY: OBSTETRICAL ULTRASOUND - BIOPHYSICAL PROFILE REASON FOR EXAM: Female, 29 years old. well-being LMP: Unknown. PRIOR ULTRASOUND: 01/01/2020 TECHNIQUE: Transabdominal ultrasound evaluation was performed. FINDINGS: BABY A: There is a single intrauterine fetus. The fetus is in a breech presentation. There is demonstrated cardiac activity with a heart rate of 155 bpm. There is a normal amniotic fluid volume. The amniotic fluid index (SHALONDA) is 19.13 cm. The placenta is anterior in location and is not low lying. BIOPHYSICAL PROFILE: Breathing Movements (FBM): 2 Gross Body Movements (GBM): 2 Tone (FT): 2 Amniotic Fluid Volume (AFV): 2 TOTAL SCORE: IMPRESSION: BABY A: Normal biophysical profile of 05/24. Electronically Signed: Ray Aranda, at 17:56 EDT Tel , Service support , STUDY: OBSTETRICAL ULTRASOUND - BIOPHYSICAL PROFILE REASON FOR EXAM: Female, 29 years old. well-being LMP: Unknown. PRIOR ULTRASOUND: 01/01/2020 TECHNIQUE: Transabdominal ultrasound evaluation was performed. FINDINGS: BABY B: There is a single intrauterine fetus. The fetus is in a cephalic presentation. There is demonstrated cardiac activity with a heart rate of 160 bpm. There is a normal amniotic fluid volume. The amniotic fluid index (SHALONDA) is 19.13 cm. The placenta is anterior in location and is not low lying. BIOPHYSICAL PROFILE: Breathing Movements (FBM): 2 Gross Body Movements (GBM): 2 Tone (FT): 2 Amniotic Fluid Volume (AFV): 2 TOTAL SCORE: 8 / 8 US/Biophysical Prof W/O Non Stres IMPRESSION: BABY B: Normal biophysical profile of 05/24. Electronically Signed: Ray Aranda, at 17:57 EDT Tel , Service support ,
== END | disposition home or self-care (01) ==
PROVIDERS: PCP Internal Medicine; Referring Provider Obstetrics & Gynecology; Visit Provider Obstetrics & Gynecology
DX: O30.009 Twin pregnancy, unspecified number of placenta and unspecified number of amniotic sacs, unspecified trimester (principal); Z3A.00 Weeks of gestation of pregnancy not specified
CPT/HCPCS: 76819

== ENCOUNTER 2020-05-01 07:57 | Outpatient (CLI) | payer BC, SELFPAY ==
[2020-04-11 14:04] VITALS: BMI 27.3
[2020-04-25 08:39] VITALS: BMI 27.3
--- NOTE | 2020-05-01 08:08 | US_ITS ---
STUDY: OBSTETRICAL ULTRASOUND - BIOPHYSICAL PROFILE REASON FOR EXAM: Female, 29 years old WELL BEING, TWINS . Baby A LMP: Unknown. PRIOR ULTRASOUND: Comparison is made with prior examination of April 24, 2020. TECHNIQUE: Transabdominal TECHNICAL QUALITY: Adequate. FINDINGS: There is a single intrauterine fetus. The fetus is in a breech presentation. There is demonstrated cardiac activity with a heart rate of 143 bpm. There is a normal amniotic fluid volume. The largest amniotic fluid pocket measures 3.6 cm. The placenta is anterior in location and is not low lying. There are Grade 2 placental changes. BIOPHYSICAL PROFILE: Breathing Movements (FBM): 0 Gross Body Movements (GBM): 2 Tone (FT): 2 Amniotic Fluid Volume (AFV): 2 TOTAL SCORE: IMPRESSION: biophysical profile of 03/24. Electronically Signed: Luiz Weaver, at 12:51 EDT , Service support , STUDY: OBSTETRICAL ULTRASOUND - BIOPHYSICAL PROFILE REASON FOR EXAM: Female, 29 years old WELL BEING, TWINS . Baby B LMP: Unknown PRIOR ULTRASOUND: Comparison is made with prior study dated April 24, 2020. TECHNIQUE: Transabdominal TECHNICAL QUALITY: Adequate. FINDINGS: There is a single intrauterine fetus. The fetus is in a cephalic presentation. There is demonstrated cardiac activity with a heart rate of 152 bpm. There is a normal amniotic fluid volume. The largest amniotic fluid pocket measures 7.9 cm. The placenta is anterior in location and is not low lying. There are Grade 2 placental changes. BIOPHYSICAL PROFILE: Breathing Movements (FBM): 0 Gross Body Movements (GBM): 2 Tone (FT): 2 Amniotic Fluid Volume (AFV): 2 TOTAL SCORE: 6 / 8 US/Biophysical Prof W/O Non Stres IMPRESSION: biophysical profile of 03/24. Electronically Signed: Luiz Weaver, at 12:52 EDT , Service support ,
[2020-05-01 12:16] VITALS: BP 128/76; PULSE 95; TEMP 37.2; O2SAT 98
[2020-05-01 12:22] VITALS: BP 128/76; PULSE 95
[2020-05-01 12:55] VITALS: BMI 28.3
== END 2020-05-01 13:10 | disposition home or self-care (01) ==
LOC: OPUS 07:58 → WP 12:16
PROVIDERS: PCP Internal Medicine; Referring Provider Obstetrics & Gynecology; Visit Provider Obstetrics & Gynecology
DX: O30.009 Twin pregnancy, unspecified number of placenta and unspecified number of amniotic sacs, unspecified trimester (principal); Z3A.00 Weeks of gestation of pregnancy not specified
CPT/HCPCS: 59025; 59050; 76818; 76819; 99218; G0378

== ENCOUNTER → 2020-05-02 | Outpatient (CLI) | payer BC, SELFPAY ==
[2020-05-01 12:55] VITALS: BMI 28.3
--- NOTE | 2020-05-02 15:19 | US_ITS ---
STUDY: OBSTETRICAL ULTRASOUND - BIOPHYSICAL PROFILE- BABY A REASON FOR EXAM: Female, 29 years old WELL BEING- TWINS LMP: Unknown. PRIOR ULTRASOUND: January 01, 2020, April 24, 2020 and May 01, 2020 TECHNIQUE: Transabdominal TECHNICAL QUALITY: Adequate. FINDINGS: There is a twin intrauterine .. Fetus A is in a breech presentation on the maternal right. There is demonstrated cardiac activity with a heart rate of 156 bpm. There is a normal amniotic fluid volume. The largest amniotic fluid pocket measures 3.6 cm. The placenta is anterior in location and is not low lying. There are Grade 2 placental changes. age by prior US: 30 weeks, 2 days. SARATH by prior US: July 09, 2020.. BIOPHYSICAL PROFILE: Breathing Movements (FBM): 2 Gross Body Movements (GBM): 2 Tone (FT): 2 Amniotic Fluid Volume (AFV): 2 TOTAL SCORE: 8 / 8 IMPRESSION: Normal biophysical profile of 8/8 for Baby A. Electronically Signed: Jose Sagastume DO at 17:18 EDT Tel [phone], Service support , STUDY: OBSTETRICAL ULTRASOUND - BIOPHYSICAL PROFILE- BABY B REASON FOR EXAM: Female, 29 years old WELL BEING- TWINS LMP: Unknown. PRIOR ULTRASOUND: January 01, 2020, April 24, 2020 and May 01, 2020 TECHNIQUE: Transabdominal TECHNICAL QUALITY: Adequate. FINDINGS: There is a twin intrauterine .. Fetus B is in a cephalic presentation on the maternal left. There is demonstrated cardiac activity with a heart rate of 133 bpm. There is a normal amniotic fluid volume. The largest amniotic fluid pocket measures 6.2 cm. The placenta is anterior in location and is not low lying. There are Grade 2 placental changes. age by prior US: 30 weeks, 2 days. SARATH by prior US: July 09, 2020.. BIOPHYSICAL PROFILE: Breathing Movements (FBM): 2 Gross Body Movements (GBM): 2 Tone (FT): 2 Amniotic Fluid Volume (AFV): 2 TOTAL SCORE: US/Biophysical Prof W/O Non Stres IMPRESSION: Normal biophysical profile of 05/24 for Baby B. Electronically Signed: Jose Sagastume DO at 17:19 EDT Tel [phone], Service support ,
--- NOTE | 2020-05-02 15:19 | US_ITS ---
STUDY: OBSTETRICAL ULTRASOUND - BIOPHYSICAL PROFILE- BABY A REASON FOR EXAM: Female, 29 years old WELL BEING- TWINS LMP: Unknown. PRIOR ULTRASOUND: January 01, 2020, April 24, 2020 and May 01, 2020 TECHNIQUE: Transabdominal TECHNICAL QUALITY: Adequate. FINDINGS: There is a twin intrauterine .. Fetus A is in a breech presentation on the maternal right. There is demonstrated cardiac activity with a heart rate of 156 bpm. There is a normal amniotic fluid volume. The largest amniotic fluid pocket measures 3.6 cm. The placenta is anterior in location and is not low lying. There are Grade 2 placental changes. age by prior US: 30 weeks, 2 days. SARATH by prior US: July 09, 2020.. BIOPHYSICAL PROFILE: Breathing Movements (FBM): 2 Gross Body Movements (GBM): 2 Tone (FT): 2 Amniotic Fluid Volume (AFV): 2 TOTAL SCORE: 8 / 8 IMPRESSION: Normal biophysical profile of 8/8 for Baby A. Electronically Signed: Jose Sagastume DO at 17:18 EDT Tel [phone], Service support , STUDY: OBSTETRICAL ULTRASOUND - BIOPHYSICAL PROFILE- BABY B REASON FOR EXAM: Female, 29 years old WELL BEING- TWINS LMP: Unknown. PRIOR ULTRASOUND: January 01, 2020, April 24, 2020 and May 01, 2020 TECHNIQUE: Transabdominal TECHNICAL QUALITY: Adequate. FINDINGS: There is a twin intrauterine .. Fetus B is in a cephalic presentation on the maternal left. There is demonstrated cardiac activity with a heart rate of 133 bpm. There is a normal amniotic fluid volume. The largest amniotic fluid pocket measures 6.2 cm. The placenta is anterior in location and is not low lying. There are Grade 2 placental changes. age by prior US: 30 weeks, 2 days. SARATH by prior US: July 09, 2020.. BIOPHYSICAL PROFILE: Breathing Movements (FBM): 2 Gross Body Movements (GBM): 2 Tone (FT): 2 Amniotic Fluid Volume (AFV): 2 TOTAL SCORE: US/Biophysical Prof W/O Non Stres IMPRESSION: Normal biophysical profile of 05/24 for Baby B. Electronically Signed: Jose Sagastume DO at 17:19 EDT Tel [phone], Service support ,
== END | disposition home or self-care (01) ==
LOC: US 15:19
PROVIDERS: PCP Internal Medicine; Referring Provider Obstetrics & Gynecology; Visit Provider Obstetrics & Gynecology
DX: O30.009 Twin pregnancy, unspecified number of placenta and unspecified number of amniotic sacs, unspecified trimester (principal); Z3A.00 Weeks of gestation of pregnancy not specified
CPT/HCPCS: 76819

== ENCOUNTER → 2020-05-09 | Outpatient (CLI) | payer BC, SELFPAY ==
[2020-04-11 14:04] VITALS: BMI 27.3
[2020-05-09 08:27] VITALS: BMI 28.3
--- NOTE | 2020-05-09 14:05 | US_ITS ---
STUDY: OBSTETRICAL ULTRASOUND - BIOPHYSICAL PROFILE REASON FOR EXAM: Female, 29 years old. well-being. Twins. LMP: Unknown. PRIOR ULTRASOUND: None. TECHNIQUE: Transabdominal ultrasound evaluation was performed. FINDINGS: There are twin intrauterine gestations noted. BABY A: The fetus is in a breech presentation. There is demonstrated cardiac activity with a heart rate of 155 bpm. There is a normal amniotic fluid volume. BIOPHYSICAL PROFILE: Breathing Movements (FBM): 2 Gross Body Movements (GBM): 2 Tone (FT): 2 Amniotic Fluid Volume (AFV): 2 TOTAL SCORE: IMPRESSION: Twin intrauterine gestation. Baby A: Normal biophysical profile of 05/24. Electronically Signed: Ray Aranda, at 15:40 EDT Tel , Service support , STUDY: OBSTETRICAL ULTRASOUND - BIOPHYSICAL PROFILE REASON FOR EXAM: Female, 29 years old. well-being. Twins. LMP: Unknown. PRIOR ULTRASOUND: None. TECHNIQUE: Transabdominal ultrasound evaluation was performed. FINDINGS: There are twin intrauterine gestations noted. BABY B: The fetus is in a breech presentation. There is demonstrated cardiac activity with a heart rate of 160 bpm. There is a normal amniotic fluid volume. BIOPHYSICAL PROFILE: Breathing Movements (FBM): 2 Gross Body Movements (GBM): 2 Tone (FT): 2 Amniotic Fluid Volume (AFV): 2 TOTAL SCORE: US/Biophysical Prof W/O Non Stres IMPRESSION: Twin intrauterine gestation. Baby B: Normal biophysical profile of 05/24. Electronically Signed: Ray Aranda, at 15:41 EDT Tel , Service support ,
== END | disposition home or self-care (01) ==
LOC: OPUS 13:54
PROVIDERS: PCP Internal Medicine; Referring Provider Obstetrics & Gynecology; Visit Provider Obstetrics & Gynecology
DX: O30.009 Twin pregnancy, unspecified number of placenta and unspecified number of amniotic sacs, unspecified trimester (principal); Z3A.00 Weeks of gestation of pregnancy not specified
CPT/HCPCS: 76818; 76819

== ENCOUNTER → 2020-05-15 | Outpatient (CLI) | payer BC, SELFPAY ==
[2020-04-11 14:04] VITALS: BMI 27.3
[2020-05-12 14:06] VITALS: BMI 28.3
--- NOTE | 2020-05-15 08:20 | US_ITS ---
STUDY: OBSTETRICAL ULTRASOUND - BIOPHYSICAL PROFILE REASON FOR EXAM: Female, 29 years old well being -twins . 20. LMP: Unknown. PRIOR ULTRASOUND: Comparison is made with prior examination dated 05/09/2020. TECHNIQUE: Transabdominal TECHNICAL QUALITY: Adequate. FINDINGS: The fetus is in a breech presentation. There is demonstrated cardiac activity with a heart rate of 144 bpm. There is a normal amniotic fluid volume. The largest amniotic fluid pocket measures 3.2 cm. The amniotic fluid index (SHALONDA) is within normal limits. The placenta is anterior in location and is not low lying. There are Grade 0 placental changes. BIOPHYSICAL PROFILE: Breathing Movements (FBM): 2 Gross Body Movements (GBM): 2 Tone (FT): 2 Amniotic Fluid Volume (AFV): 2 TOTAL SCORE: / 8 IMPRESSION: Normal biophysical profile of 05/24. Electronically Signed: Luiz Weaver, at 13:10 EDT , Service support , STUDY: OBSTETRICAL ULTRASOUND - BIOPHYSICAL PROFILE REASON FOR EXAM: Female, 29 years old well being -twins . 20 LMP: Unknown PRIOR ULTRASOUND: Comparison is made with prior examination dated 05/09/2020. TECHNIQUE: Transabdominal TECHNICAL QUALITY: Adequate. FINDINGS: The fetus is in an oblique presentation with the head on the maternal left side. There is demonstrated cardiac activity with a heart rate of 148 bpm. There is a normal amniotic fluid volume. The largest amniotic fluid pocket measures 7.6 cm. The amniotic fluid index (SHALONDA) is normal. The placenta is There are Grade 0 placental changes. BIOPHYSICAL PROFILE: Breathing Movements (FBM): 2 Gross Body Movements (GBM): 2 Tone (FT): 2 Amniotic Fluid Volume (AFV): 2 TOTAL SCORE: US/Biophysical Prof W/O Non Stres IMPRESSION: Normal biophysical profile of 05/24. Electronically Signed: Luiz Weaver, at 13:11 EDT , Service support ,
== END | disposition home or self-care (01) ==
LOC: OPUS 08:05
PROVIDERS: PCP Internal Medicine; Referring Provider Obstetrics & Gynecology; Visit Provider Obstetrics & Gynecology
DX: O30.009 Twin pregnancy, unspecified number of placenta and unspecified number of amniotic sacs, unspecified trimester (principal); Z3A.00 Weeks of gestation of pregnancy not specified
CPT/HCPCS: 76819

== ENCOUNTER → 2020-05-22 07:56 | Outpatient (CLI) | payer BC, SELFPAY ==
[2020-04-11 14:04] VITALS: BMI 27.3
[2020-05-12 14:06] VITALS: BMI 28.3
--- NOTE | 2020-05-22 08:18 | US_ITS ---
STUDY: OBSTETRICAL ULTRASOUND - BIOPHYSICAL PROFILE REASON FOR EXAM: Female, 29 years old well being-twins . Baby B LMP: Unknown. PRIOR ULTRASOUND: Comparison is made with prior ultrasound dated 05/15/2020. TECHNIQUE: Transabdominal TECHNICAL QUALITY: Adequate. FINDINGS: The fetus is in an transverse lie with the head on the maternal left side. There is demonstrated cardiac activity with a heart rate of 148 bpm. There is a normal amniotic fluid volume. The largest amniotic fluid pocket measures 7.5 cm. The amniotic fluid index (SHALONDA) is normal. The placenta is anterior in location and is not low lying. There are Grade 2 placental changes. Age by LMP: 33 weeks, 1 days. SARATH by LMP: 07/09/2020. BIOPHYSICAL PROFILE: Breathing Movements (FBM): 2 Gross Body Movements (GBM): 2 Tone (FT): 2 Amniotic Fluid Volume (AFV): 2 TOTAL SCORE: 8 / 8 IMPRESSION: Normal biophysical profile of 8/8. Electronically Signed: Luiz Weaver, at 10:01 EDT , Service support , STUDY: OBSTETRICAL ULTRASOUND - BIOPHYSICAL PROFILE REASON FOR EXAM: Female, 29 years old well being-twins . Baby A LMP: Unknown PRIOR ULTRASOUND: Comparison is made with prior examination dated 05/15/2020. TECHNIQUE: Transabdominal TECHNICAL QUALITY: Adequate. FINDINGS: The fetus is in a breech presentation. There is demonstrated cardiac activity with a heart rate of 138 bpm. There is a normal amniotic fluid volume. The largest amniotic fluid pocket measures 3.2 cm. The amniotic fluid index (SHALONDA) is within normal limits. The placenta is anterior in location and is not low lying. There are Grade 2 placental changes. Age by LMP: 33 weeks, 1 days. SARATH by LMP: 07/09/2020. BIOPHYSICAL PROFILE: Breathing Movements (FBM): 2 Gross Body Movements (GBM): 2 Tone (FT): 2 Amniotic Fluid Volume (AFV): 2 TOTAL SCORE: US/Biophysical Prof W/O Non Stres IMPRESSION: Normal biophysical profile of 05/24. Electronically Signed: Luiz Weaver, at 10:03 EDT , Service support ,
== END ==
PROVIDERS: PCP Internal Medicine; Referring Provider Obstetrics & Gynecology; Visit Provider Obstetrics & Gynecology
DX: O30.043 Twin pregnancy, dichorionic/diamniotic, third trimester (principal); O32.1XX1 Maternal care for breech presentation, fetus 1; O32.2XX2 Maternal care for transverse and oblique lie, fetus 2; Z3A.33 33 weeks gestation of pregnancy
CPT/HCPCS: 76819

== ENCOUNTER → 2020-05-29 | Outpatient (CLI) | payer BC, SELFPAY ==
[2020-04-11 14:04] VITALS: BMI 27.3
[2020-05-23 08:17] VITALS: BMI 28.3
--- NOTE | 2020-05-29 07:59 | US_ITS ---
STUDY: OBSTETRICAL ULTRASOUND - BIOPHYSICAL PROFILE REASON FOR EXAM: Female, 29 years old WELL BEING- TWINS . Baby A LMP: Unknown. PRIOR ULTRASOUND: Comparison is made with prior examination dated 05/22/2020. TECHNIQUE: Transabdominal TECHNICAL QUALITY: Adequate. FINDINGS: There is a single intrauterine fetus. The fetus is in a breech presentation. There is demonstrated cardiac activity with a heart rate of 138 bpm. There is a normal amniotic fluid volume. The largest amniotic fluid pocket measures 3.9 cm. The amniotic fluid index (SHALONDA) is within normal limits. The placenta is anterior in location and is not low lying. There are Grade 2 placental changes. BIOPHYSICAL PROFILE: Breathing Movements (FBM): 2 Gross Body Movements (GBM): 2 Tone (FT): 2 Amniotic Fluid Volume (AFV): 2 TOTAL SCORE: 8 IMPRESSION: Normal biophysical profile of 05/24. Electronically Signed: Luiz Owen, at 9:56 EDT , Service support , STUDY: OBSTETRICAL ULTRASOUND - BIOPHYSICAL PROFILE REASON FOR EXAM: Female, 29 years old WELL BEING- TWINS . Twin B LMP: Unknown PRIOR ULTRASOUND: Comparison is made with prior ultrasound dated 05/22/2020. TECHNIQUE: Transabdominal TECHNICAL QUALITY: Adequate. FINDINGS: There is a single intrauterine fetus. The fetus is in a cephalic presentation. There is demonstrated cardiac activity with a heart rate of 152 bpm. There is a normal amniotic fluid volume. The largest amniotic fluid pocket measures 7.3 cm. The amniotic fluid index (SHALONDA) is normal. The placenta is anterior in location and is not low lying. There are Grade 2 placental changes. BIOPHYSICAL PROFILE: Breathing Movements (FBM): 2 Gross Body Movements (GBM): 2 Tone (FT): 2 Amniotic Fluid Volume (AFV): 2 TOTAL SCORE: US/Biophysical Prof W/O Non Stres IMPRESSION: Normal biophysical profile of 05/24. Electronically Signed: Luiz Weaver, at 9:59 EDT , Service support ,
== END | disposition home or self-care (01) ==
LOC: OPUS 07:59
PROVIDERS: PCP Internal Medicine; Referring Provider Obstetrics & Gynecology; Visit Provider Obstetrics & Gynecology
DX: O30.049 Twin pregnancy, dichorionic/diamniotic, unspecified trimester (principal); Z3A.00 Weeks of gestation of pregnancy not specified
CPT/HCPCS: 76819

== ENCOUNTER 2020-06-02 10:05 | Inpatient (IN) | payer BC, SELFPAY ==
[2020-05-30 14:41] VITALS: BMI 28.3
[2020-06-02] VITALS (21 sets, daily range): BP systolic 125–153; BP diastolic 82–100; PULSE 60–112; RESP 16; TEMP 36.3–37.2; O2SAT 97–100; BMI 31.9
[2020-06-02] MEDS: Lactated Ringers 1,000 ML 999 ML IV (10:15)
[2020-06-02 10:29] LABS: Absolute Lymphocyte Count 0.93 X10^3/uL (0.83-4.51); Absolute Neutrophil Count 4.4 X10^3/uL (2.0-7.7); Basophil# 0.01 X10^3/uL; Basophil% 0.2 % (0-1); Eosinophil# 0.03 X10^3/uL; Eosinophils% 0.5 % (0-5); Hematocrit 33.8 % (37-47); Hemoglobin 11.2 g/dL (12.0-15.0); Lymphocyte # 0.93 X10^3/ul (4.0); Lymphocyte % 15.4 % (19-41); Mean Corp Hgb Conc 33.1 g/dL (32-36); Mean Corpuscular Hgb 27.4 pg (27.0-32.0); Mean Corpuscular Volume 82.6 fL (81-99); Mean Platelet Vol. 13.4 fl (6.2-12.0); Monocyte# 0.62 X10^3/uL; Monocyte% 10.3 % (0-10); NRBC Flagged by Analyzer 0 % (0-5); Neutrophil # 4.42 X10^3/uL (2.7-7.7); Neutrophil % 73.1 % (47-70); Platelet Count 159 K/mm3 (150-450); RBC Distribution Width CV 12.8 % (11.6-14.6); RBC Distribution Width SD 38.6 fl (35.1-43.9); Red Blood Count 4.09 M/mm3 (4.2-5.4)
[2020-06-02 10:52] LABS: ROM Internal Control Test YES-OK TO RESULT pt. (Internal QC)
[2020-06-02] MEDS: Acetaminophen 500 MG Tablet 1000 MG PO ×3 (10:52→23:53)
[2020-06-02 10:53] LABS: ROM Patient Test POSITIVE (Negative)
[2020-06-02] MEDS: Betamethasone/Betamethasone 30 MG/5 ML Vial 12 MG IM (10:53)
[2020-06-02 11:06] LABS: Bedside Glucose 77 mg/dL (70-110)
[2020-06-02] MEDS: Lactated Ringers 1,000 ML 150 ML IV (11:16)
--- NOTE | 2020-06-02 11:36 | HP.PCM_ITS ---
- Problem List (1) Sterilization Status: Acute Comment: discussed PPTL (2) IUGR (intrauterine growth restriction) Status: Acute Comment: Baby B, twice weekly BPPs, weekly dopplers, and growth US q 4 weeks (3) Gestational diabetes Status: Acute Qualifiers: Comment: endocrine consult, diabetic diet. no meds. baby asa daily. (4) Fragile x chromosome Status: Acute Comment: Intermediate allele size detected for fragile X. An intermediate size 45 CGG repeat allele and a normal size 20 allele were detected in the FMR1 gene. Pt is not at increased risk to have a child with Fragile X Syndrome. In some cases, intermediate alleles can expand to a premutation (carrier status) in future generations. (5) Dichorionic diamniotic twin Status: Acute Comment: increased testing, Delivery at 37 weeks 06/19/2020 at 12p (6) History of delivery Status: Acute Comment: bailey PPROM at 36 weeks, no progesterone this (7) Status: Acute Qualifiers: Comment: NIPT and carrier done. US with MFM reveiwed. (8) Rh negative state in antepartum period Status: Acute Comment: o neg- rhogam on 04/25/20 (9) Supervision of other normal Status: Acute Comment: PRR SARATH 07/09/2020 Maria Antonia Braswell PC: Gil Spouse: Thiaog (10) Anxiety Status: Chronic Comment: stable on celexa, encouraged counseling. History Date of Admission: 07/02/18 Final SARATH: 07/09/20 Final SARATH Source: LMP Gestational age: 34 Weeks and 5 Days History of this : This is a 29 year-old, G2, P1, at 34 weeks gestational age who presented with LOF since 929 and was found to be ruptured. Babies are breech/vertex. Plan for PCD. Medical History: Medical History (Last Reviewed 05/30/20 @ 14:23 by Ade Watson) Anxiety (Chronic) F41.9 stable on celexa, encouraged counseling. Gestational diabetes O24.419 Allergies amoxicillin Allergy (Mild, Verified 06/02/20 10:27) Rash as a [employer]er codeine Allergy (Mild, Verified 06/02/20 10:27) UNKNOWN unsure penicillin G Allergy (Mild, Verified 05/30/20 14:23) Rash Home Medications: Home Medications ondansetron 4 mg disintegrating tablet 4 mg PO Q8H PRN #60 tab 12/21/19 aspirin 81 mg tablet,delayed release 81 mg PO DAILY 02/01/20 prenat.vits,bess,ilv-ggqh-ugjgf 1 tab PO DAILY 02/01/20 RX: Citalopram [Celexa] 20 mg PO DAILY 06/02/20 Smoking Status: Never smoker Alcohol: None Substance Use Type: Anxiety Medications Number of Fetus(es): 2 NST - FHR Rate Baby A Baseline: 150 Variability:: Moderate Accelerations:: 15 x 15 Decelerations:: None NST Reactive:: Yes FHR Category:: Category I Uterine Activity:: q5min - FHR Rate Baby B Baseline: 150 Variability:: Moderate Accelerations:: 15 x 15 Decelerations:: None NST Reactive:: Yes FHR Category:: Category I History Past Pregnancies: Past Pregnancies Past Pregnancies Del. Date Name GA/Weeks Outcome Route Bth Weight Gen Labor Lgth Anesthesia Del [facility] Provider FOB 07/02/18 Gil Veda 36 live - 5lbs 3oz Female 9hours epidural [facility] [place] Labs: Mom's Labs & Results 06/02/20 06/02/20 06/02/20 10:00 10:15 10:15 WBC 6.0 RBC 4.09 L Hgb 11.2 L Hct 33.8 L MCV 82.6 MCH 27.4 MCHC 33.1 RDW Std Deviation 38.6 RDW Coeff of Chiquis 12.8 Plt Count 159 MPV 13.4 H Immature Gran % (Auto) 0.500 Neut % (Auto) 73.1 H Lymph % (Auto) 15.4 L [place]orne % (Auto) 10.3 H Eos % (Auto) 0.5 Baso % (Auto) 0.2 Absolute Neuts (auto) 4.4 Absolute Lymphs (auto) 0.93 Nucleated RBC % 0 Vag Amniotic Fld Detect POSITIVE H POC Glucose Blood Type O NEGATIVE Antibody Screen Not Reportable 06/02/20 06/02/20 10:15 10:59 WBC RBC Hgb Hct MCV MCH MCHC RDW Std Deviation RDW Coeff of Chiquis Plt Count MPV Immature Gran % (Auto) Neut % (Auto) Lymph % (Auto) Cla[place]orne % (Auto) Eos % (Auto) Baso % (Auto) Absolute Neuts (auto) Absolute Lymphs (auto) Nucleated RBC % Vag Amniotic Fld Detect POC Glucose 77 Blood Type Antibody Screen Pending Course Did the patient receive Yes care? Labs Blood Type: O RH: NEGATIVE RPR/VDRL/Syphilis Nonreactive Rubella status Immune HbSAg Negative Date Done: 12/12/19 Chlamydia Negative Gonorrhea Negative HIV/AIDS Non-Reactive Group B Strep: Not Done Current Obstetrical History Gestational Diabetes Yes: diet controlled Incompetent Cervix No Infertility No IUGR Yes Macrosomia No Hypertension/Pre-eclampsia No Placenta Previa/Abruption No PTL/PROM Yes: SROM 34.5 Uterine anomaly No Oligohydramnios No Polyhydramnios No Multiple gestation Yes: twin girls Past Medical History Asthma No Diabetes No Hypertension No Heart disease No Mitral valve prolapse No Neurologic/Seizure disorder/ No Migraines Kidney disease No Liver disease No Varicosities No Clotting disorders/Hx of DVT No Thyroid Dysfunction No Other medical diseases No Psychiatric disorders Yes: ANXIETY Major trauma No Abnormal PAP smear No Sleep apnea No Mammogram in the last 2 years No Social History Marital Status: Alleged father Thiago Hx Smoking No Smoking Status Never smoker Substance Use Type Anxiety Medications What date/time did you last celexa generic use any of the above? Expected Infant Delivery Method: Primary Section Describe any other labor & delivery plans:: PCD. Specific Issue/Plans. flu vaccine: decline. tdap vaccine: given 04/11. rhogam: given 04/11. LARC form signed: declined Review of Systems Constitutional: Denies: Chills, Fever, Weight Change HEENT: Denies: Head Aches Cardiovascular: Denies: Chest Pain, Palpitations Respiratory: Denies: Cough, Shortness of Breath Gastrointestinal: Reports: Abdominal Pain. Denies: Nausea, Vomiting Genitourinary: Denies: Dysuria Gynecological: Reports: Vaginal discharge - LOF. Denies: Vaginal bleeding, Vaginal itching Skin: Denies: Rash, Wounds Neurological: Denies: Numbness, Tingling Psychiatric: Denies: Anxiety, Depression Physical Exam Vitals: Vital Signs Temp Pulse Resp BP Pulse Ox 98.9 F 83 16 139/91 H 98 06/02/20 10:29 06/02/20 11:18 06/02/20 10:29 06/02/20 11:18 06/02/20 10:31 General: Alert, Oriented x3, No apparent distress HEENT: Atraumatic, PERRLA, EOMI, Normocephalic Cardiovascular: Regular rate Lungs: Normal air movement Abdomen: Soft, Non Tender, Non-Distended, Gravid, Appropriate for Gestational Age Neurological: Deep Tendon Reflexes 2+/4 and Symmetrical, Neuro grossly intact Presentation: Breech Cervix Dilation (cm): 4 - per automotive brake specialist/Plan All Active Problems (Last Reviewed 05/30/20 @ 14:23 by Ade Watson) Sterilization (Acute) IUGR (intrauterine growth restriction) (Acute) Gestational diabetes (Acute) Fragile x chromosome (Acute) Dichorionic diamniotic twin (Acute) History of delivery (Acute) (Acute) Rh negative state in antepartum period (Acute) Supervision of other normal (Acute) Abnormal glucose (Resolved) screening encounter (Resolved) Asymptomatic bacteriuria during in first trimester (Resolved) Gestational diabetes mellitus (GDM) affecting (Resolved) H/O gestational diabetes in prior , currently (Resolved) Nausea/vomiting in (Resolved) premature rupture of membranes (PPROM) with onset of labor within 24 hours of rupture in third trimester, antepartum (Resolved) Rh negative status during (Resolved) Supervision of normal (Resolved) This is a 29 year-old, G2, P1, at 34 weeks gestational age admitted for PCD for PPROM with Di-Di Twins - BMZx1 give - Babies breech/vtx on US today - Ancef and Azithromycin for abx - Plan PCD with BTL - R/B/i/A to procedure discussed with patient and she agrees to proceed - Rh negative - will need rhogam
[2020-06-02] MEDS: Sodium Citrate/Citric Acid 30 ML UDC PO (12:00)
[2020-06-02] MEDS: Cefazolin 2 GM in 0.9% Normal Saline 100 ML IV (12:00)
--- NOTE | 2020-06-02 12:05 | OP.PCM_ITS ---
Problem List (1) Sterilization Status: Acute Comment: discussed PPTL (2) IUGR (intrauterine growth restriction) Status: Acute Comment: Baby B, twice weekly BPPs, weekly dopplers, and growth US q 4 weeks (3) Gestational diabetes Status: Acute Qualifiers: Comment: endocrine consult, diabetic diet. no meds. baby asa daily. (4) Fragile x chromosome Status: Acute Comment: Intermediate allele size detected for fragile X. An intermediate size 45 CGG repeat allele and a normal size 20 allele were detected in the FMR1 gene. Pt is not at increased risk to have a child with Fragile X Syndrome. In some cases, intermediate alleles can expand to a premutation (carrier status) in future generations. (5) Dichorionic diamniotic twin Status: Acute Comment: increased testing, Delivery at 37 weeks 06/19/2020 at 12p (6) History of delivery Status: Acute Comment: bailey PPROM at 36 weeks, no progesterone this (7) Status: Acute Qualifiers: Comment: NIPT and carrier done. US with MFM reveiwed. (8) Rh negative state in antepartum period Status: Acute Comment: o neg- rhogam on 04/25/20 (9) Supervision of other normal Status: Acute Comment: PRR SARATH 07/09/2020 Maria Antonia Braswell PC: Gil Spouse: Thiago (10) Anxiety Status: Chronic Comment: stable on celexa, encouraged counseling. Delivery Classification: Scheduled Final SARATH: 07/09/20 Final SARATH Source: LMP Gestational age: 34 Weeks and 5 Days certified anesthesiologist assistant: Elisabeth Mcpherson Type of Anesthesia:: Spinal Special Medications: Ancef, Azithromycin Date of Procedure: 06/02/20 Pre-Operative Diagnosis: Di-Di Twin gestation at 34/5, PPROM, Breech/Vertex presentation, Desire for permanent sterilization Post-Operative Diagnosis: same Indications: PPROM Indications for : Malpresentation, Multiple Gestation Description of Procedure: She was taken to the operating room where spinal anesthesia was obtained without difficulty. She was prepped and draped in the dorsal supine position with a leftward tilt. Anesthesia level was tested and found to be adequate. Pfannenstiel incision was then made with a scalpel. The incision was then carried down to the level of the fascia with the Bovie. Fascia was nicked in the midline and the incision was carried laterally with Bunch scissors. The musc le were in the midline and the peritoneum was entered bluntly. Peritoneal incision was extended using blunt dissection. The lower uterine segment was identified and the uterine incision was made with the scalpel. The buttock was elevated out of the pelvis and baby A was delivered atraumatically without difficulty. The baby was then found to be in transverse position. The cord was clamped and cut and the infant was handed off to the delivery nurse. Membranes were ruptured. Were grasped and the infant was delivered to the level of the hysterotomy. The remainder the was delivered with gentle fundal pressure. The cord was clamped and cut and the was delivered off to the delivery nurse. The placenta then delivered with gentle uterine massage and appeared intact. Uterus was then exteriorized. The uterus was cleared of all membranes and debris using moist laparotomy sponges. This was closed in a running locked fashion using 0 Monocryl suture. Bleeding was then noted from the right lateral edge of the hysterotomy. An [place] stitch was then performed in a spoihr-pc-nnzra fashion using 0 Monocryl suture. An area of continued bleeding was noted and an additional stitch was placed to tamponade a hematoma. This was noted to stop the bleeding. The hysterotomy was inspected and good hemostasis was noted. Attention was then directed to the fallopian tubes. The left fallopian tube was then grasped using [place]. Essure was then used to cauterize and transect the tube in the mesosalpinx. Entire fallopian tube was removed. Good hemostasis was noted. This was repeated on the right tube. Hysterotomy was then reinspected and hemostasis was noted. The uterus was then replaced in the abdominal cavity and the gutters were cleared of clots and debris using moist laparotomy sponges. Hysterotomy was reinspected and noted to be hemostatic. Peritoneum was closed in a running fashion using 3-0 Monocryl suture. A small hematoma was noted on the right lateral aspect of the rectus muscle. Hemostasis was achieved with 2 skifgxj-bw-jrbfs suture. A stratafix suture was then used in a running fashion to both the fascia. Subcutaneous space was then irrigated and hemostasis was achieved with the Bovie. Subcutaneous space was then closed using 3-0 Monocryl suture. Skin was closed in a running subcuticular fashion fashion using 4-0 Monocryl suture. Steris and a Mepilex dressing were then placed. All counts were correct x2. The patient was taken to the recovery room in stable condition. Amniotic Membrane Rupture Type: Spontaneous Amniotic Fluid Description: Clear Placenta Disposition: Sent to Pathology Drain: Doty to straight drain Cord Entanglement: None Cord Vessel Description: 3 Vessels Esitmated Blood Loss (ml): 1000 Gender: Female - x2 Delayed cord clamping: No Antibiotic Given: Ancef 2 grams IV x1, Zithromax 500 mg/5 mL X1 Pt instructed on risks of surgery: Bleeding, Anesthesia Risks, Infection, Permanency, Failure Rate of 1 to 2%, Injury to surrounding structure(s) including bowel and bladder, Availability of other non-permanent control options - Admit VTE Documentation VTE Present on Admission: No VTE Mechan Device Prophylaxis: SCD's VTE Pharm Prophylaxis ordered?: No Reason prophylaxis not ordered:: Treatment Not Indicated Multi Select Codes - Urinary/Genital Urinary/Genital CPT Codes: 47616 C/S+TL - bilateral salpingectomy, 67790 [facility]
--- NOTE | 2020-06-02 12:10 | DCINST_ITS ---
<Shelly Cruz - Last Filed: 06/02/20 12:10> Discharge Diet: No Restrictions Discharge Activity: May Not Drive - for 2 weeks or while taking narcotic pain meds., May Shower, May Take a Tub Bath - in 7 days. May resume sexual activity in: 4-6 weeks Lifting Restrictions: 20 pounds Additional Activity Instructions:: Nothing in the vagina for 4-6 weeks. You may return to work/school in 6 weeks. Call your doctor if your incision/area has: Continuous Slow Oozing, Sudden Increased Bleeding, Increased Pain/ Swelling, Increased Redness, Foul Smelling Discharge Call your doctor if you observe: Fever of 101 or Higher Suture Line Care: Avoid Pulling/Pushing, Avoid Pinching/Bending Additional Instructions: If you experience any of the following, contact your healthcare provider. * Bleeding that soaks a pad every hour for 2 hours * Fever 100.4 or higher * Unrelieved incision or abdominal pain * Swelling, redness, discharge or bleeding from your incision or episiotomy site * Your incision begins to separate * Problems urinating (including inability to urinate or burning while urinating). * Visual changes * Severe headache * Flu-like symptoms * Pain or redness in one of both of your breasts * Pain, warmth, tenderness or swelling in your legs, especially the calf area * Frequent nausea and vomiting * Symptoms of depression or anxiety If you experience any of the following, call 911 or go to the nearest Emergency Room. * Chest pain * Problems breathing * Seizure activity * Partial or complete paralysis of a body part, slurred speech, weakness or drooping of the face, or a sudden inability to walk or hold your balance Allergies/Adverse Reactions: Allergies amoxicillin Allergy (Mild, Verified 06/02/20 10:27) Rash as a middel schooler codeine Allergy (Mild, Verified 06/02/20 10:27) UNKNOWN unsure penicillin G Allergy (Mild, Verified 05/30/20 14:23) Rash Medications to take at Discharge ondansetron 4 mg disintegrating tablet 4 mg PO Q8H PRN #60 tab 12/21/19 aspirin 81 mg tablet,delayed release 81 mg PO DAILY 02/01/20 prenat.vits,bess,xnw-skpy-rdrea 1 tab PO DAILY 02/01/20 Citalopram [Celexa] 20 mg PO DAILY 06/02/20 Docusate Sodium [Colace] 100 mg PO BID #60 cap 06/02/20 Naproxen [Naprosyn] 250 - 500 mg PO Q8H PRN PRN #30 tab 06/02/20 Oxycodone HCl/Acetaminophen [Percocet 5-325] 1 - 2 tab PO Q6H PRN PRN 7 Days #15 tab 06/02/20 The following prescriptions were given: Docusate Sodium [Colace] 100 mg PO BID #60 cap Transmission Status: Received by [facility] Naproxen [Naprosyn] 250 - 500 mg PO Q8H PRN PRN #30 tab PRN Reason: MILD PAIN Transmission Status: Received by [facility] Oxycodone HCl/Acetaminophen [Percocet 5-325] 1 - 2 tab PO Q6H PRN PRN 7 Days #15 tab PRN Reason: Pain Transmission Status: Received by [facility] Follow-Up: Call to make an appointment with your doctor for an incision check in 1-2 weeks. You will also need a 6 week post- follow up appointment. Test results from this visit will be discussed in further detail at your follow- up appointment, if applicable. Primary Care Physician: Jaspreet Cottrell MD [Primary Care Provider] - <Genevieve Kong - Last Filed: 06/04/20 08:00> Additional Instructions: If you experience any of the following, contact your healthcare provider. * Bleeding that soaks a pad every hour for 2 hours * Fever 100.4 or higher * Unrelieved incision or abdominal pain * Swelling, redness, discharge or bleeding from your incision or episiotomy site * Your incision begins to separate * Problems urinating (including inability to urinate or burning while urinating). * Visual changes * Severe headache * Flu-like symptoms * Pain or redness in one of both of your breasts * Pain, warmth, tenderness or swelling in your legs, especially the calf area * Frequent nausea and vomiting * Symptoms of depression or anxiety If you experience any of the following, call 911 or go to the nearest Emergency Room. * Chest pain * Problems breathing * Seizure activity * Partial or complete paralysis of a body part, slurred speech, weakness or drooping of the face, or a sudden inability to walk or hold your balance Follow-Up: Call to make an appointment with your doctor for an incision check in 1-2 weeks. You will also need a 6 week post- follow up appointment. Test results from this visit will be discussed in further detail at your follow- up appointment, if applicable.
--- NOTE | 2020-06-02 12:35 | FALS_PTH ---
PATIENT: BRANDIE DONAHUE LOC: [facility] U#:[id number] AGE/SX: 29/F ROOM: WP003 RE06/02/[address]: Dr. Shelly Cruz MD : 1990 BED: 1 DIS: 06/04/2020 SPEC #: [id number] RECD: 06/02/20 14:19 STATUS: ANA RAMIREZ #: [id number] MARCIO: 06/02/20 12:[address]: Shelly Cruz DEPT: SURGICAL PATHOLOGY RECD BY: Deuce Al ENTERED: 06/02/20 14:20 SP TYPE: FALL TUBES OTHR DR: Dr. Jaspreet Cottrell MD Tissues: Fallopian tube Procedures: Surgery Specimen Level II HEADER OPERATION: Tubal ligation PRE-OP DIAGNOSIS: Sterilization TISSUE SUBMITTED: Fallopian tubes MICROSCOPIC DIAGNOSIS Bilateral fallopian tubes, salpingectomy: Bilateral fallopian tubes including fimbrial ends, no pathologic diagnosis. SJ:justo 06/03/20 MICROSCOPIC DESCRIPTION Slides are reviewed. GROSS DESCRIPTION Received in fixative is one container labeled with the patient's name and designated bilateral fallopian tubes, left suture. The specimen consists of bilateral fallopian tubes including fimbrial ends. The right fallopian tube measures 7.5 cm in length and up to 0.5 cm in diameter and left fallopian tube measures 6 cm in length and 0.6 cm in diameter. Sections reveal unremarkable cut surfaces. Concierge Receptionist sections are submitted in two cassettes as follows: 1 - right fallopian tube, 2 - left fallopian tube. / SMITH:justo 06/02/20 TC:2 CPT: 17072 x2
[2020-06-02] MEDS: Oxytocin 30 units/NS 500 ml 30 UNITS/500 ML IV.SOLN 167 UNITS IV (13:35)
[2020-06-02 14:11] LABS: Pathology Specimen OB SEE PATHOLOGY REPORT
[2020-06-02 15:05] LABS: Bedside Glucose 98 mg/dL (70-110)
--- NOTE | 2020-06-02 15:57 | NURSING ---
1500 Brought in double pump for mother to begin pumping for her babies in [facility]. Explained how to use pump and how often, discussed hands on pumping and collection and storage of milk. We also discussed proper cleaning of pump equipment. Mother plans to pump every 3 hours around the clock until babies are nursing effectively.
[2020-06-02] MEDS: Lactated Ringers 1,000 ML 100 ML IV (16:41)
[2020-06-02] MEDS: Ketorolac 30 MG/ML Syringe IV (19:16)
[2020-06-02] MEDS: DiphenhydrAMINE 25 MG Capsule PO (21:47)
[2020-06-03] MEDS: Ketorolac 30 MG/ML Syringe IV ×3 (01:24→13:25)
[2020-06-03] MEDS: 0.9% Saline Lock 10 ML Syringe IV ×2 (01:25→07:16)
[2020-06-03 03:45] VITALS: BP 134/87; PULSE 60; RESP 18; TEMP 36.6; O2SAT 100
[2020-06-03 05:00] VITALS: BP 133/83
[2020-06-03 05:30] LABS: Bedside Glucose 92 mg/dL (70-110)
[2020-06-03 05:34] LABS: Hematocrit 24.7 % (37-47); Hemoglobin 8.3 g/dL (12.0-15.0); Mean Corp Hgb Conc 33.6 g/dL (32-36); Mean Corpuscular Hgb 27.6 pg (27.0-32.0); Mean Corpuscular Volume 82.1 fL (81-99); Mean Platelet Vol. 13.3 fl (6.2-12.0); Platelet Count 159 K/mm3 (150-450); RBC Distribution Width CV 12.8 % (11.6-14.6); RBC Distribution Width SD 37.9 fl (35.1-43.9); Red Blood Count 3.01 M/mm3 (4.2-5.4); White Blood Count 13.7 K/mm3 (4.4-11.0)
[2020-06-03] MEDS: Acetaminophen 500 MG Tablet 1000 MG PO ×3 (05:54→19:06)
[2020-06-03] MEDS: DiphenhydrAMINE 25 MG Capsule PO (05:58)
--- NOTE | 2020-06-03 07:50 | PCM.PN.OB ---
Subjective: Doing well, no complaints.Pain controlled. Denies CP, SOB, N,V. Ambulating well, tolerating po. Lochia moderate, going well/pumping. Babies in SCN - Physical Exam Vitals/I&O's: Vital Signs Temp Pulse Resp BP Pulse Ox 97.9 F 60 18 133/83 H 100 06/03/20 03:45 06/03/20 03:45 06/03/20 03:45 06/03/20 05:00 06/03/20 03:45 Oxygen Delivery Method Room Air Weight: 174 lb 9.698 oz Body Mass Index (BMI) 31.9 Intake and Output for Last 24 Hours 06/01/20 06/02/20 06/03/20 23:59 23:59 23:59 Intake Total 2082.5 / 2082.5 1000 / 1000 Output Total 675 / 675 150 / 150 Balance 1407.5 / 1407.5 850 / 850 General: Alert, Oriented x3 Abdomen: Soft, Non-Distended, - - FF below. Incision dry and intact Laboratory Results 06/02/20 10:00: Vag Amniotic Fld Detect POSITIVE H 06/02/20 10:15: WBC 6.0, RBC 4.09 L, Hgb 11.2 L, Hct 33.8 L, MCV 82.6, MCH 27.4, MCHC 33.1, RDW Std Deviation 38.6, RDW Coeff of Chiquis 12.8, Plt Count 159, MPV 13.4 H, Immature Gran % (Auto) 0.500, Neut % (Auto) 73.1 H, Lymph % (Auto) 15.4 L, [place] % (Auto) 10.3 H, Eos % (Auto) 0.5, Baso % (Auto) 0.2, Absolute Neuts (auto) 4.4, Absolute Lymphs (auto) 0.93, Nucleated RBC % 0 06/02/20 10:15: Blood Type O NEGATIVE, Antibody Screen Not Reportable 06/02/20 10:15: Antibody Screen NEGATIVE 06/02/20 10:59: POC Glucose 77 06/02/20 14:56: POC Glucose 98 06/03/20 05:11: POC Glucose 92 06/03/20 05:20: WBC 13.7 H, RBC 3.01 L, Hgb 8.3 L, Hct 24.7 L, MCV 82.1, MCH 27.6, MCHC 33.6, RDW Std Deviation 37.9, RDW Coeff of Chiquis 12.8, Plt Count 159, MPV 13.3 H Current Medications Acetaminophen (Tylenol) 1,000 mg PO Q6H [facility] Last Admin: 06/03/20 05:54 Dose: 1,000 mg Documented by: Bisacodyl (Dulcolax) 10 mg RECTAL UD PRN PRN Reason: If no BM Citalopram Hydrobromide (Celexa) 20 mg PO DAILY [facility] Dextrose (D50w Syringe) 0 gm IV X1 PRN; Protocol PRN Reason: Hypoglycemia Diphenhydramine HCl (Benadryl) 25 mg PO Q6H PRN PRN PRN Reason: ITCHING Stop: 06/03/20 15:50 Last Admin: 06/03/20 05:58 Dose: 25 mg Documented by: Glucagon () 1 mg IM .X1 PRN PRN Reason: Hypoglycemia Hydrocortisone (Hytone) 1 applic TOPICAL TID PRN PRN; Protocol PRN Reason: Discomfort Lactated Ringer's () 1,000 mls @ 100 mls/hr IV .Q10H [facility] Last Infusion: 06/03/20 02:50 Dose: Infused Documented by: Naloxone HCl 4 mg/ Dextrose 504 mls @ 0 mls/hr IV .Q0M PRN; Protocol PRN Reason: Respiratory depression Naloxone HCl 4 mg/ Dextrose 504 mls @ 0 mls/hr IV .Q0M PRN; Protocol PRN Reason: To maintain Resp. rate >10 Ketorolac Tromethamine (Toradol (Bkc)) 30 mg IV Q6H [facility] Stop: 06/03/20 13:01 Last Admin: 06/03/20 07:15 Dose: 30 mg Documented by: Methylergonovine Maleate (Methergine) 0.2 mg IM X1 PRN PRN Reason: Uterine Atony Naloxone HCl (Narcan) 0.02 mg IV Q1M PRN PRN Reason: RR <10 and pt unresponsive Naloxone HCl (Narcan) 0.02 mg IV Q1M PRN PRN Reason: RR <10 and pt unresponsive Naproxen (Naprosyn) 500 mg PO Q8H [facility] Ondansetron HCl (Zofran) 4 mg IV Q4H PRN PRN PRN Reason: Nausea Oxycodone HCl (Oxyir) 5 - 10 mg PO Q4H PRN PRN PRN Reason: Pain Score 4-10/10 Prochlorperazine Edisylate (Compazine Iv) 10 mg IV Q6H PRN PRN PRN Reason: NAUSEA Senna/Docusate Sodium (Senokot-S, Ankita-Colace) 1 - 2 tablet PO DAILY [facility] Simethicone (Mylicon) 80 mg PO PCHS PRN PRN Reason: Indigestion/stomach pain Sodium Chloride () 5 - 15 ml IV UD PRN PRN Reason: SALINE FLUSH Last Admin: 06/03/20 07:16 Dose: 10 ml Documented by: Medical Necessity - Tobacco Use Smoking Status: Never smoker Assessment/Plan All Active Problems (Last Reviewed 05/30/20 @ 14:23 by Ade Watson) Sterilization (Acute) IUGR (intrauterine growth restriction) (Acute) Gestational diabetes (Acute) Fragile x chromosome (Acute) Dichorionic diamniotic twin (Acute) History of delivery (Acute) (Acute) Rh negative state in antepartum period (Acute) Supervision of other normal (Acute) Abnormal glucose (Resolved) screening encounter (Resolved) Asymptomatic bacteriuria during in first trimester (Resolved) Gestational diabetes mellitus (GDM) affecting (Resolved) H/O gestational diabetes in prior , currently (Resolved) Nausea/vomiting in (Resolved) premature rupture of membranes (PPROM) with onset of labor within 24 hours of rupture in third trimester, antepartum (Resolved) Rh negative status during (Resolved) Supervision of normal (Resolved) s/p LTCS BS PPD # 1 1. routine post care 2. breast feeding- support given 3. rh negative 4. rubella immune 5. Repeat CBC 6. Glucose controlled
[2020-06-03 10:20] VITALS: BP 140/88; PULSE 87; RESP 16; TEMP 37.3; O2SAT 98
[2020-06-03] MEDS: Citalopram 20 MG Tablet PO (10:32)
[2020-06-03] MEDS: Senna/Docusate Sodium 1 Tablet PO (10:32)
[2020-06-03 10:33] VITALS: BP 122/78; PULSE 74
[2020-06-03 13:18] LABS: Hematocrit 24.7 % (37-47); Hemoglobin 8.2 g/dL (12.0-15.0); Mean Corp Hgb Conc 33.2 g/dL (32-36); Mean Corpuscular Hgb 27.6 pg (27.0-32.0); Mean Corpuscular Volume 83.2 fL (81-99); Mean Platelet Vol. 13.6 fl (6.2-12.0); Platelet Count 151 K/mm3 (150-450); RBC Distribution Width CV 12.9 % (11.6-14.6); RBC Distribution Width SD 38.9 fl (35.1-43.9); Red Blood Count 2.97 M/mm3 (4.2-5.4); White Blood Count 13.2 K/mm3 (4.4-11.0)
[2020-06-03 15:31] VITALS: BP 131/83; PULSE 76; RESP 16; TEMP 36.9
[2020-06-03] MEDS: Naproxen 250 MG Tablet 500 MG PO (19:07)
[2020-06-03 20:05] VITALS: BP 136/87; PULSE 96; RESP 18; TEMP 37.2; O2SAT 98
[2020-06-03] MEDS: oxyCODONE 5 MG Tablet PO (21:48)
[2020-06-04] MEDS: Acetaminophen 500 MG Tablet 1000 MG PO ×2 (00:04→05:57)
[2020-06-04 02:15] VITALS: BP 137/89; PULSE 89; RESP 16; TEMP 36.6; O2SAT 96
[2020-06-04] MEDS: Naproxen 250 MG Tablet 500 MG PO (05:12)
--- NOTE | 2020-06-04 07:56 | PCM.PN.OB ---
Subjective: Patient doing well without complaints. Tolerating PO. Ambulating and voiding without difficulty. + passing gas. Pumping/twins girls in SCN and attempting to breastfeed. Denies chest pain, shortness of breath, calf pain/swelling, fevers, chills, lightheadedness. Is nauseous this am-feels she needs to eat, breakfast ordered - Physical Exam Vitals/I&O's: Vital Signs Temp Pulse Resp BP Pulse Ox 97.8 F 89 16 137/89 H 96 06/04/20 02:15 06/04/20 02:15 06/04/20 02:15 06/04/20 02:15 06/04/20 02:15 Oxygen Delivery Method Room Air Weight: 174 lb 9.698 oz Body Mass Index (BMI) 31.9 Intake and Output for Last 24 Hours 06/02/20 06/03/20 06/04/20 23:59 23:59 23:59 Intake Total 2082.5 / 2082.5 1000 / 1000 Output Total 675 / 675 150 / 150 Balance 1407.5 / 1407.5 850 / 850 General: Alert, Oriented x3 Abdomen: Soft, Non-Distended, - - FF below U. Dressing dry and intact Laboratory Results 06/03/20 12:45: WBC 13.2 H, RBC 2.97 L, Hgb 8.2 L, Hct 24.7 L, MCV 83.2, MCH 27.6, MCHC 33.2, RDW Std Deviation 38.9, RDW Coeff of Chiquis 12.9, Plt Count 151, MPV 13.6 H Current Medications Acetaminophen (Tylenol) 1,000 mg PO Q6H [facility] Last Admin: 06/04/20 05:57 Dose: 1,000 mg Documented by: Bisacodyl (Dulcolax) 10 mg RECTAL UD PRN PRN Reason: If no BM Citalopram Hydrobromide (Celexa) 20 mg PO DAILY [facility] Last Admin: 06/03/20 10:32 Dose: 20 mg Documented by: Dextrose (D50w Syringe) 0 gm IV X1 PRN; Protocol PRN Reason: Hypoglycemia Glucagon () 1 mg IM .X1 PRN PRN Reason: Hypoglycemia Hydrocortisone (Hytone) 1 applic TOPICAL TID PRN PRN; Protocol PRN Reason: Discomfort Naloxone HCl 4 mg/ Dextrose 504 mls @ 0 mls/hr IV .Q0M PRN; Protocol PRN Reason: Respiratory depression Naloxone HCl 4 mg/ Dextrose 504 mls @ 0 mls/hr IV .Q0M PRN; Protocol PRN Reason: To maintain Resp. rate >10 Methylergonovine Maleate (Methergine) 0.2 mg IM X1 PRN PRN Reason: Uterine Atony Naloxone HCl (Narcan) 0.02 mg IV Q1M PRN PRN Reason: RR <10 and pt unresponsive Naloxone HCl (Narcan) 0.02 mg IV Q1M PRN PRN Reason: RR <10 and pt unresponsive Naproxen (Naprosyn) 500 mg PO Q8H [facility] Last Admin: 06/04/20 05:12 Dose: 500 mg Documented by: Ondansetron HCl (Zofran) 4 mg IV Q4H PRN PRN PRN Reason: Nausea Oxycodone HCl (Oxyir) 5 - 10 mg PO Q4H PRN PRN PRN Reason: Pain Score 4-10/10 Last Admin: 06/03/20 21:48 Dose: 5 mg Documented by: Prochlorperazine Edisylate (Compazine Iv) 10 mg IV Q6H PRN PRN PRN Reason: NAUSEA Senna/Docusate Sodium (Senokot-S, Ankita-Colace) 1 - 2 tablet PO DAILY [facility] Last Admin: 06/03/20 10:32 Dose: 2 tablet Documented by: Simethicone (Mylicon) 80 mg PO PCHS PRN PRN Reason: Indigestion/stomach pain Sodium Chloride () 5 - 15 ml IV UD PRN PRN Reason: SALINE FLUSH Last Admin: 06/03/20 07:16 Dose: 10 ml Documented by: Medical Necessity - Tobacco Use Smoking Status: Never smoker Assessment/Plan All Active Problems (Last Reviewed 05/30/20 @ 14:23 by Ade Watson) Sterilization (Acute) IUGR (intrauterine growth restriction) (Acute) Gestational diabetes (Acute) Fragile x chromosome (Acute) Dichorionic diamniotic twin (Acute) History of delivery (Acute) (Acute) Rh negative state in antepartum period (Acute) Supervision of other normal (Acute) Abnormal glucose (Resolved) screening encounter (Resolved) Asymptomatic bacteriuria during in first trimester (Resolved) Gestational diabetes mellitus (GDM) affecting (Resolved) H/O gestational diabetes in prior , currently (Resolved) Nausea/vomiting in (Resolved) premature rupture of membranes (PPROM) with onset of labor within 24 hours of rupture in third trimester, antepartum (Resolved) Rh negative status during (Resolved) Supervision of normal (Resolved) s/p LTCS PPD # 2 1. routine post care 2. breast feeding- support given 3. rh negative 4. rubella immune 5. Glucose controlled 6. zofran for nausea 7. Home today, declines hotel as lives close by and young daughter at home
[2020-06-04 08:11] VITALS: BP 142/97; PULSE 80; RESP 14; TEMP 36.7
[2020-06-04 12:04] VITALS: BP 127/96; PULSE 91; RESP 14; TEMP 36.6
== END 2020-06-04 12:20 | disposition home or self-care (01) | DRG 785 ==
LOC: WPOUT 10:08 → WP 10:08
PROVIDERS: Nurse Practitioner Women's Health; Admitting Provider Obstetrics & Gynecology; PCP Internal Medicine; Referring Provider Obstetrics & Gynecology; Visit Provider Obstetrics & Gynecology
DX: O32.1XX1 Maternal care for breech presentation, fetus 1 (principal); O42.013 Preterm premature rupture of membranes, onset of labor within 24 hours of rupture, third trimester; Z3A.34 34 weeks gestation of pregnancy; Z37.2 Twins, both liveborn; O30.043 Twin pregnancy, dichorionic/diamniotic, third trimester
CPT/HCPCS: 59050; 82962; 84112; 85025; 85027; 86850; 86900; 86901; 88302; 99218; J7120; A4216; G0378; J0702; J2405

== ENCOUNTER → 2020-07-18 | Outpatient (CLI) | payer BC, SELFPAY ==
[2020-07-18 14:12] VITALS: BMI 31.9
[2020-07-23 16:34] LABS: HPV APTIMA, High Risk Negative (Negative)
== END | disposition home or self-care (01) ==
LOC: LABSPEC 17:00
PROVIDERS: PCP Internal Medicine; Referring Provider Obstetrics & Gynecology; Visit Provider Obstetrics & Gynecology
DX: Z12.4 Encounter for screening for malignant neoplasm of cervix (principal)
CPT/HCPCS: 87624; 88175; G0145

== ENCOUNTER 2020-11-14 08:54 | Outpatient (RCR) | payer BC, SELFPAY ==
[2020-07-18 14:12] VITALS: BMI 31.9
== END 2020-11-14 23:59 ==
LOC: IMMUN 08:54
PROVIDERS: PCP Internal Medicine; Visit Provider Family Medicine
DX: Z23 Encounter for immunization (principal)
CPT/HCPCS: 0011A; 0012A; 91301

== ENCOUNTER → 2021-05-15 15:12 | Outpatient (CLI) | payer BC, SELFPAY ==
[2021-05-15 14:34] VITALS: BMI 29.7
[2021-05-15 16:55] LABS: Absolute Neutrophil Count 2.9 X10^3/uL (2.0-7.7); Basophil# 0.01 X10^3/uL; Basophil% 0.2 % (0-1); Eosinophil# 0.05 X10^3/uL; Eosinophils% 1.1 % (0-5); Hematocrit 33.2 % (37-47); Hemoglobin 9.9 g/dL (12.0-15.0); Lymphocyte % 22.2 % (19-41); Mean Corp Hgb Conc 29.8 g/dL (32-36); Mean Corpuscular Hgb 20.8 pg (27.0-32.0); Mean Corpuscular Volume 69.7 fL (81-99); Mean Platelet Vol. 11.4 fl (6.2-12.0); Monocyte# 0.56 X10^3/uL; Monocyte% 12.4 % (0-10); NRBC Flagged by Analyzer 0 % (0-5); Neutrophil # 2.87 X10^3/uL (2.7-7.7); Neutrophil % 63.7 % (47-70); Platelet Count 261 K/mm3 (150-450); RBC Distribution Width CV 17.1 % (11.6-14.6); RBC Distribution Width SD 42.7 fl (35.1-43.9); Red Blood Count 4.76 M/mm3 (4.2-5.4); White Blood Count 4.5 K/mm3 (4.4-11.0)
[2021-05-15 17:50] LABS: ALB/GLOB Ratio 1.2 RATIO (0.9-2.4); AST(SGOT) 11 U/L (15-37); Alanine Aminotransfer ALT/SGPT 25 U/L (13-56); Albumin, Serum 3.9 g/dL (3.2-5.0); Alkaline Phosphatase 56 U/L (45-117); Anion Gap 5 (5-15); BUN 13 mg/dL (7-18); BUN/Creat Ratio 16.6 RATIO (10-20); Calcium,Total 8.7 mg/dL (8.5-10.1); Chloride 108 mmol/L (98-107); Creatinine, Serum 0.78 mg/dL (0.55-1.02); EST Glomerular Filtration Rate 91 mL/min (>60); Est Glom Filt Rate - Afr Amer 110 mL/min (>60); Globulin 3.2 g/dL (2.2-4.2); Glucose 101 mg/dL (74-106); Potassium 3.8 mmol/L (3.5-5.1); Protein, Total 7.1 g/dL (6.4-8.2); Sodium Level 139 mmol/L (136-145); Thyroid Stim Hormone (TSH) 2.97 uIU/mL (0.358-3.74)
== END ==
LOC: BIMLAB 15:13
PROVIDERS: PCP Internal Medicine; Referring Provider Physician Assistant; Visit Provider Physician Assistant
DX: Z00.00 Encounter for general adult medical examination without abnormal findings (principal)
CPT/HCPCS: 36415; 80053; 84443; 85025

== ENCOUNTER → 2021-05-20 11:03 | Outpatient (CLI) | payer BC, SELFPAY ==
[2021-05-15 14:34] VITALS: BMI 29.7
[2021-05-20 12:34] LABS: Ferritin 3 ng/mL (8-252); Iron 32 ug/dL (50-170); Iron Binding Capacity,Total 436 ug/dL (250-450); PERCENT IRON SATURATION 7.3 % (15.0-55.0)
[2021-05-21 07:37] LABS: Transferrin 314 mg/dL (192-364)
== END ==
PROVIDERS: PCP Internal Medicine; Referring Provider Physician Assistant; Visit Provider Physician Assistant
DX: D50.9 Iron deficiency anemia, unspecified (principal)
CPT/HCPCS: 36415; 82728; 83540; 83550; 84466

== ENCOUNTER → 2021-06-29 13:17 | Outpatient (CLI) | payer BC, SELFPAY ==
--- NOTE | 2021-06-29 13:20 | US_ITS ---
STUDY: ULTRASOUND OF THE FEMALE PELVIS - COMPLETE REASON FOR EXAM: Female, 30 years old. Abnormal uterine bleeding. LMP: 06/25/2021. TECHNIQUE: Transabdominal and Transvaginal TECHNICAL QUALITY: Adequate. COMPARISON: None. FINDINGS: The uterus is retroverted and is in a midline position. The uterus measures 7.3 cm x 5.8 cm x 4.1 cm. Normal uterine cervix. The endometrium measures 4.2 mm in thickness, and is hyperechoic. There is no demonstrated endometrial mass. There is no demonstrated myometrial mass. I.U.D. - The patient does not have an I.U.D. The right ovary is visualized. The right ovary measures 4.7 cm x 3.4 cm x 2.4 cm. A dominant follicle is seen within the right ovary measuring 1.9 cm x 1.8 cm x 1.2 cm. There is no visualized right adnexal mass or complex lesion. There is normal arterial and normal venous vascularity. The left ovary is visualized. The left ovary measures 4.7 cm x 2.1 cm x 2.3 cm. There is a 2.7 cm x 0.8 cm x 1.2 cm left ovarian cyst. There is no visualized left adnexal mass or complex lesion. There is normal arterial and normal venous vascularity. There is no fluid in the cul-de-sac. The pre void volume of the bladder was 82 ml. US/Transvaginal Non- IMPRESSION: Left ovarian cyst. Dominant follicle in the right ovary. Electronically Signed: Luiz Weaver MD at 15:52 EDT , Service support ,
--- NOTE | 2021-06-29 13:20 | US_ITS ---
STUDY: ULTRASOUND OF THE FEMALE PELVIS - COMPLETE REASON FOR EXAM: Female, 30 years old. Abnormal uterine bleeding. LMP: 06/25/2021. TECHNIQUE: Transabdominal and Transvaginal TECHNICAL QUALITY: Adequate. COMPARISON: None. FINDINGS: The uterus is retroverted and is in a midline position. The uterus measures 7.3 cm x 5.8 cm x 4.1 cm. Normal uterine cervix. The endometrium measures 4.2 mm in thickness, and is hyperechoic. There is no demonstrated endometrial mass. There is no demonstrated myometrial mass. I.U.D. - The patient does not have an I.U.D. The right ovary is visualized. The right ovary measures 4.7 cm x 3.4 cm x 2.4 cm. A dominant follicle is seen within the right ovary measuring 1.9 cm x 1.8 cm x 1.2 cm. There is no visualized right adnexal mass or complex lesion. There is normal arterial and normal venous vascularity. The left ovary is visualized. The left ovary measures 4.7 cm x 2.1 cm x 2.3 cm. There is a 2.7 cm x 0.8 cm x 1.2 cm left ovarian cyst. There is no visualized left adnexal mass or complex lesion. There is normal arterial and normal venous vascularity. There is no fluid in the cul-de-sac. The pre void volume of the bladder was 82 ml. US/Pelvic (Non ) IMPRESSION: Left ovarian cyst. Dominant follicle in the right ovary. Electronically Signed: Luiz Weaver MD at 15:52 EDT , Service support ,
== END ==
PROVIDERS: PCP Internal Medicine; Referring Provider Obstetrics & Gynecology; Visit Provider Obstetrics & Gynecology
DX: N93.9 Abnormal uterine and vaginal bleeding, unspecified (principal)
CPT/HCPCS: 76830; 76856

== ENCOUNTER → 2021-07-23 09:02 | Outpatient (CLI) | payer BC, SELFPAY ==
[2021-07-23 09:19] LABS: Absolute Lymphocyte Count 1.18 X10^3/uL (0.83-4.51); Basophil# 0.02 X10^3/uL; Basophil% 0.5 % (0-1); Eosinophil# 0.06 X10^3/uL; Eosinophils% 1.6 % (0-5); Hemoglobin 12.4 g/dL (12.0-15.0); Lymphocyte # 1.18 X10^3/ul (0.83-4.51); Lymphocyte % 32.2 % (19-41); Mean Corpuscular Hgb 23.2 pg (27.0-32.0); Mean Corpuscular Volume 74.8 fL (81-99); Mean Platelet Vol. 11.2 fl (6.2-12.0); Monocyte# 0.43 X10^3/uL; Monocyte% 11.7 % (0-10); NRBC Flagged by Analyzer 0 % (0-5); Neutrophil # 1.97 X10^3/uL (2.7-7.7); Neutrophil % 53.7 % (47-70); POSITIVE MORPHOLOGY YES; Platelet Count 226 K/mm3 (150-450); RBC Distribution Width CV 20.7 % (11.6-14.6); RBC Distribution Width SD 54.2 fl (35.1-43.9); Red Blood Count 5.35 M/mm3 (4.2-5.4); White Blood Count 3.7 K/mm3 (4.4-11.0)
[2021-07-23 09:26] LABS: Differential Indicated SCAN CRITERIA MET
[2021-07-23 09:57] LABS: Anisocytosis 1+
== END ==
PROVIDERS: PCP Internal Medicine; Referring Provider Obstetrics & Gynecology; Visit Provider Obstetrics & Gynecology
DX: N93.9 Abnormal uterine and vaginal bleeding, unspecified (principal)
CPT/HCPCS: 36415; 85025

== ENCOUNTER → 2021-08-06 | Outpatient (CLI) | payer BC, SELFPAY ==
--- NOTE | 2021-08-06 15:57 | EMB_PTH ---
PATIENT: BRANDIE DONAHUE LOC: [facility] U#:[id number] AGE/SX: 30/F ROOM: RE08/06/[address]: TONI Garcia : 1990 BED: DIS: 08/06/2021 SPEC #: [id number] RECD: 08/06/21 15:57 STATUS: ANA HAYHayden #: [id number] MARCIO: 08/06/21 15:[address]: Genevieve Kong NP DEPT: SURGICAL PATHOLOGY RECD BY: Alysia Sabillon ENTERED: 08/07/21 08:53 SP TYPE: ENDOM BX/C MARCO DR: Dr. Jaspreet Cottrell MD Tissues: Endometrium, NOS Procedures: Surgery Specimen Level IV HEADER OPERATION: Endometrial biopsy PRE-OP DIAGNOSIS: Abnormal uterine bleeding TISSUE SUBMITTED: Endometrial biopsy MICROSCOPIC DIAGNOSIS Endometrial biopsy: Secretory endometrium. SJ:justo 08/10/2021 MICROSCOPIC DESCRIPTION Slides are reviewed. GROSS DESCRIPTION Received in fixative is one container labeled with the patient's name and designated EMB. The specimen consists of multiple irregular fragments of lepe-pink soft tissue that in aggregate measure 3 x 2.5 x 0.2 cm. The specimen is totally submitted in one cassette. / SJ:rg 08/07/21 TC:4 CPT: 09107
== END | disposition home or self-care (01) ==
LOC: LABSPEC 16:02
PROVIDERS: PCP Internal Medicine; Referring Provider Nurse Practitioner Women's Health; Visit Provider Nurse Practitioner Women's Health
DX: N93.9 Abnormal uterine and vaginal bleeding, unspecified (principal)
CPT/HCPCS: 88305

== ENCOUNTER → 2021-08-18 15:34 | Outpatient (CLI) | payer BC, SELFPAY ==
[2021-08-18 16:09] LABS: Absolute Lymphocyte Count 1.33 X10^3/uL (0.83-4.51); Absolute Neutrophil Count 1.5 X10^3/uL (2.0-7.7); Basophil# 0.01 X10^3/uL; Basophil% 0.3 % (0-1); Eosinophil# 0.04 X10^3/uL; Eosinophils% 1.2 % (0-5); Hematocrit 39.6 % (37-47); Hemoglobin 12.7 g/dL (12.0-15.0); Lymphocyte # 1.33 X10^3/ul (0.83-4.51); Lymphocyte % 41.2 % (19-41); Mean Corp Hgb Conc 32.1 g/dL (32-36); Mean Corpuscular Hgb 24.1 pg (27.0-32.0); Mean Platelet Vol. 11.1 fl (6.2-12.0); Monocyte# 0.36 X10^3/uL; Monocyte% 11.1 % (0-10); NRBC Flagged by Analyzer 0 % (0-5); Neutrophil # 1.48 X10^3/uL (2.7-7.7); Neutrophil % 45.9 % (47-70); Platelet Count 277 K/mm3 (150-450); RBC Distribution Width CV 19.4 % (11.6-14.6); RBC Distribution Width SD 52.1 fl (35.1-43.9); Red Blood Count 5.28 M/mm3 (4.2-5.4); White Blood Count 3.2 K/mm3 (4.4-11.0)
[2021-08-18 16:16] LABS: Magnesium 2.2 mg/dL (1.6-2.6)
[2021-08-18 16:17] LABS: Prothrombin Time (Protime)PT. 12.1 SECONDS (11.7-14.9)
[2021-08-18 16:18] LABS: Partial Thromboplast Time 30.1 Seconds (24.1-36.2)
== END ==
PROVIDERS: Anesthesiology; PCP Internal Medicine; Referring Provider Obstetrics & Gynecology; Visit Provider Obstetrics & Gynecology
DX: Z01.818 Encounter for other preprocedural examination (principal)
CPT/HCPCS: 83735; 85025; 85610; 85730; 86850; 86900; 86901

== ENCOUNTER 2021-08-25 05:37 | Day surgery (SDC) | payer BC, SELFPAY ==
[2021-08-19 16:25] LABS: Absolute Lymphocyte Count 0.97 X10^3/uL (0.83-4.51); Absolute Neutrophil Count 1.9 X10^3/uL (2.0-7.7); Basophil# 0.01 X10^3/uL; Basophil% 0.3 % (0-1); Eosinophil# 0.01 X10^3/uL; Eosinophils% 0.3 % (0-5); Hematocrit 38.9 % (37-47); Hemoglobin 12.3 g/dL (12.0-15.0); Lymphocyte # 0.97 X10^3/ul (0.83-4.51); Lymphocyte % 31.7 % (19-41); Mean Corp Hgb Conc 31.6 g/dL (32-36); Mean Corpuscular Hgb 23.9 pg (27.0-32.0); Mean Corpuscular Volume 75.5 fL (81-99); Monocyte# 0.12 X10^3/uL; Monocyte% 3.9 % (0-10); NRBC Flagged by Analyzer 0 % (0-5); Neutrophil # 1.94 X10^3/uL (2.7-7.7); Neutrophil % 63.5 % (47-70); Platelet Count 250 K/mm3 (150-450); RBC Distribution Width CV 18.9 % (11.6-14.6); RBC Distribution Width SD 51.9 fl (35.1-43.9); Red Blood Count 5.15 M/mm3 (4.2-5.4); White Blood Count 3.1 K/mm3 (4.4-11.0)
[2021-08-25] VITALS (11 sets, daily range): BP systolic 109–135; BP diastolic 69–96; PULSE 71–98; RESP 16–18; TEMP 36.1–36.6; O2SAT 98–100; BMI 29.7
[2021-08-25 06:14] LABS: Internal QC Validated? YES +Cl - CLEAR BKGD
[2021-08-25 06:15] LABS: Pregnancy, Urine Negative Negative
[2021-08-25] MEDS: Scopolamine 1mg/72hr Patch 1 PATCH TD (06:33)
[2021-08-25] MEDS: Enoxaparin 40 MG/0.4 ML Syringe SC (06:33)
[2021-08-25] MEDS: Phenazopyridine 95 MG Tablet 190 MG PO (06:34)
[2021-08-25] MEDS: Celecoxib 200 MG Capsule 400 MG PO (06:34)
[2021-08-25] MEDS: Gabapentin 600 MG Tablet PO (06:34)
[2021-08-25] MEDS: Acetaminophen 500 MG Tablet 1000 MG PO ×2 (06:35→11:34)
[2021-08-25] MEDS: dexAMETHasone 10 MG/ML Vial 8 MG IV (06:35)
[2021-08-25] MEDS: Lactated Ringers 1,000 ML 40 ML IV (06:36)
--- NOTE | 2021-08-25 07:32 | PCM.HP.BLA ---
History and Physical Date of Admission: 08/25/21 3 MO FU AUB Details: BRANDIE DONAHUE is a 30 year old who presents for persistent heavy menses, anemia, and dysmenorrhea. she has failed OCPs in the past with significant side effects. she has been on lysteda now for several months with no signfiicant improvement. se is wanting definitive therapy. she had an IUD in the past and didn't like it. Female Reproductive History Menopausal Symptoms: No night sweats Pregancy History 1 Elective abortions Hx Para 1 Spontaneous abortions Hx # Term Pregnancies Ectopic pregnancies Hx # Pregnancies Multiple births 1 # of living children 3 Past Pregnancies Del. Date Name GA/Weeks Outcome Route Bth Weight Infant Gen Labor Lgth Anesthesia Del Locatn Provider FOB 07/02/18 Gil Veda 36 live - 5lbs 3oz Female 9hours epidural WC [facility] 06/02/20 [place] titus 34 live - Female spinal WC Dr. Cruz Delivery Date: 07/02/18 PPROM GDM ShravanAida Delivery Date: 06/02/20 No notes to display ROS Const Constitutional: Denies fatigue, night sweats, weight gain or weight loss ENT ENT: Reports system reviewed and no additional complaints, except as documented Cardio Card: Denies chest pain Resp Resp: Denies cough or dyspnea GI GI: Reports as per HPI; Denies abdominal pain, constipation, nausea or vomiting : Denies nipple discharge, urinary frequency, urinary incontinence, urinary hesitancy, urinary urgency, vaginal discharge, vaginal dryness, vaginal odor or vaginal pruritus Musc Musc: Denies arthralgias, back pain or muscle weakness Skin Skin/Breast: Denies alopecia, change in hair, dry skin, breast mass, breast pain, breast skin changes or nipple discharge Neuro Neuro: Reports system reviewed and no additional complaints, except as documented Psych Psych: Reports system reviewed and no additional complaints, except as documented Endo Endo: Denies cold intolerance, excessive sweating, heat intolerance or polydipsia Azael/Lymph Hematologic/Lymphatic: Denies easy bleeding, Denies easy bruising and Denies lymphadenopathy Exam Const General: cooperative, healthy appearing, comfortable, no acute distress and well developed Orientation: alert HENMT Head: normal to inspection and normocephalic Ears: hearing grossly normal bilaterally and external ears normal Nose: external nose normal and nares normal Face and sinus: normal facial exam Neck Neck: normal visual inspection and no lymphadenopathy Thyroid: thyroid normal Chest Chest palpation & inspection: normal inspection of the chest Resp Effort & Inspection: normal respiratory effort Auscultation: clear to auscultation bilaterally Cardio Rate: regular rate Rhythm: regular rhythm Heart Sounds: S1 normal and S2 normal GI Inspection: normal to inspection and non-distended Palpation: soft and no hepatosplenomegaly Musc Other: gross motor intact no deficits, full bilateral strength Skin General: no rashes or lesions noted Neuro General: patient alert, patient awake, moves all extremities and no focal motor deficits Motor: muscle tone normal throughout Extrem General: normal to inspection and no pedal edema Psych Appearance: grossly normal Mental Status: mental status grossly normal Affect: normal affect Speech and Movement: speech and movement normal Coding Level of Care Code Off vis,est,level 5 Diagnoses Abnormal uterine bleeding N93.9 Iron deficiency anemia due to chronic blood loss D50.0 Assessment and Plan Assessment and Plan (1) Abnormal uterine bleeding: Status: Acute Comment: us nl. needs EMB. failed ocp, iud, and lysteda. plan LAVH. Plan - Dr. Elisabeth Mcpherson MD: After discussing the patient's diagnosis and treatment plan options, patient wishes to proceed with surgical management. I have discussed with the patient the risks, benefits, and alternatives of the procedure which include but are not limited to risks of anesthesia, bleeding, infection, possible damage to bowel, bladder, or surrounding vasculature which could lead to additional surgery to evaluate any complications. Patient agrees to procedure and wishes to proceed. ACOG/uptodate references given for additional information regarding procedure. (2) Iron deficiency anemia due to chronic blood loss: Status: Chronic Comment: menstrual Plan - Dr. Elisabeth Mcpherson MD: Problem list updated and treatment plans were reviewed with the patient and relevant educational handouts given. See problem list details for specific plan information. UPDATE- I have seen the patient and performed any clinically relevant updates to the history and physical exam. Elisabeth Mcpherson MD
--- NOTE | 2021-08-25 07:45 | HYST_PTH ---
PATIENT: BRANDIE DONAHUE LOC: [facility] U#:[id number] AGE/SX: 30/F ROOM: RE08/25/[address]: Dr. Elisabeth Mcpherson MD : 1990 BED: DIS: 08/25/2021 SPEC #: [id number] RECD: 08/25/21 12:09 STATUS: ANA RAMIREZ #: [id number] MARCIO: 08/25/21 07:[address]: Elisabeth Mcpherson DEPT: SURGICAL PATHOLOGY RECD BY: Alysia Sabillon ENTERED: 08/25/21 13:30 SP TYPE: HYSTERECT OTHR DR: Dr. Jaspreet Cottrell MD Tissues: Uterus, NOS Procedures: Surgery Specimen Level V HEADER OPERATION: ERAS, hysterectomy, LAVH, cystoscopy PRE-OP DIAGNOSIS: Abnormal uterine bleeding TISSUE SUBMITTED: Uterus MICROSCOPIC DIAGNOSIS Uterus, hysterectomy: Cervix ? squamous metaplasia and mild chronic inflammation. Endometrium ? proliferative endometrium. Myometrium ? no pathologic change. AM:justo 08/26/2021 MICROSCOPIC DESCRIPTION Slides are reviewed. GROSS DESCRIPTION Received in fixative is one container labeled with the patient's name and designated uterus and cervix. The specimen consists of a hysterectomy specimen consisting of uterus with cervix weighing 77 gm and?measuring 8.5 x 6 x 4 cm. The serosal surface is lepe, glistening. The ectocervical mucosa is unremarkable. The external os is oval in contour. The endocervical canal measures 3 cm in length and it is filled with hemorrhagic mucoid material. The endocervical mucosa is lepe, glistening and unremarkable. The endometrial cavity is narrow and measures 4.5 cm in length and 1 cm in width. Sections of the uterine wall do not reveal any mass lesion and it measures up to 2 cm in thickness. Cardiology Clinical Nurse Specialist sections are submitted in six cassettes as follows: 1 - anterior cervix, 2 - posterior cervix, 3 & 4 - anterior uterine wall, 5 & 6 - posterior uterine wall. / SJ:justo 08/25/21 TC:5 CPT: 41349
[2021-08-25] MEDS: Lubricating Jelly 60 GM Tube 30 GM TOPICAL (08:13)
[2021-08-25] MEDS: Bupivacaine 0.25% 30 ML Vial (08:15)
[2021-08-25] MEDS: Vasopressin 20 UNITS/ML Vial (08:45)
[2021-08-25 09:41] LABS: Bedside Glucose 71 mg/dL (70-110)
--- NOTE | 2021-08-25 09:41 | OP.PCM_ITS ---
Report of Operation Date of Procedure: 08/25/21 Pre-Operative Diagnosis: AUB Post-Operative Diagnosis: same Surgery/Procedure Performed:: LAVH cystoscopy Description of Surgical Findings:: nl uterus ovaries workers compensation claims examiner: Elsa Arroyo Type of Anesthesia: General Specimen's removed: uterus, tubes Drains: boland Estimated Blood Loss (mL): 100 Fluids Replaced: crystalloid Description of Procedure: Patient received preoperative antibiotics and SCDs were on preoperatively. Patient was taken back to the operating room and placed in the dorsal lithotomy position. General anesthesia was induced and patient was prepped and draped in normal sterile fashion. Uterine manipulator was placed inside the uterus and Boland catheter placed in the bladder. The umbilicus was grasped with towel clamps and an intraumbilical incision was made after injecting with quarter percent Marcaine and a Veress needle entered into the abdomen confirmed to be intra-abdominal with a low opening pressure. Abdomen was insufflated with CO2 gas and the Veress needle removed and the 5 mm trocar was placed under direct visualization without complication. Right and left lower quadrants were transilluminated and injected with quarter percent Marcaine and 5 mm ports placed under direct visualization. Pelvis was well visualized see operative findings for additional information. Bilateral utero- ovarian ligaments which were transected with the LigaSure device. The broad ligament was opened up by transecting the round ligament bilaterally and skeletonizing the uterine vessels bilaterally and creating a bladder flap using the LigaSure device. The uterine arteries were transected bilaterally with good visualization of the bladder and the ureters were seen to be inferior lateral to the operative area. Attention was then paid to the vaginal portion of the procedure and the cervix was grasped with Eva clamps and circumferentially injected with dilute vasopressin. A circumferential incision was made and the vaginal mucosa was mobilized off posteriorly and the cul-de-sac entered into sharply and a longneck speculum placed. The anterior cul-de-sac was then identified and entered into sharply. The uterosacral ligaments were clamped cut and suture ligated with 0 Monocryl bilaterally followed by the cardinal ligaments which were clamped cut and suture ligated bilaterally with 0 Monocryl. The uterus serially descended and was removed without difficulty. Pelvic sidewall pedicles were checked and noted to have excellent hemostasis. The vaginal mucosa was reapproximated incorporating the posterior peritoneum. This was reapproximated using 0 Vicryl [id number] sutures. Excellent hemostasis was noted. The cystoscopy was then performed and bilateral ureteral strong spray was noted and the bladder was noted to have no abnormality or lesions seen. Boland catheter was replaced and then attention paid to the abdominal portion of the procedure again. The pelvis and cul-de-sac were well visualized and no significant active bleeding noted but some raw areas were seen on the peritoneum and therefore floseal was applied. Pressure was taken down and the areas visualized and noted of excellent hemostasis. All ports were removed under direct visualization without complication and the abdomen was desufflated of air. The instruments were removed from the abdomen and the vaginal sweep was negative. Port sites on the abdomen were closed with 4-0 Monocryl interrupted sutures and Steri's and windows were applied. She was awoken and taken recovery in stable condition. Grafts/Implants Used: none Complications none Admit VTE Documentation VTE Present on Admission: No VTE Mechan Device Prophylaxis: SCD's VTE Pharm Prophylaxis ordered?: Yes Procedures Urinary/Genital 52xxx-59xxx: 68071 LAVH <250gr Uterus
--- NOTE | 2021-08-25 09:45 | PCM.DC ---
Discharge Instructions Diet Discharge Diet: No restrictions Activity May resume sexual activity in: 6 weeks Weight Bearing Status: Full weight bearing Dressing / Incision Call your doctor if your incision/area has: Continuous Slow Oozing, Sudden Increased Bleeding, Increased Pain/ Swelling, Increased Redness and Foul Smelling Discharge Call your doctor if you observe: Fever of 101 or Higher, Using more than 1 pad per hour, Shortness of breath, Chest pain and Uncontrolled pain Suture Line Care: Avoid Pulling/Pushing and Avoid Pinching/Bending Remove Dressing in: 1 week (if present) Cleanse incision/area with: Soap & Water and Keep Dressing Clean & Dry Follow Up Care Please Follow Up With: Elisabeth Mcpherson MD When: Call to make an appointment with your doctor for a postop visit in 2 and 6 weeks. Test Results: Test results from this visit will be discussed in further detail at your follow-up appointment, if applicable. Discharge Plan Admission Primary Reason for Your Visit: vaginal hysterectomy Attending Provider: Elisabeth Mcpherson Primary Care Provider: Jaspreet Cottrell Discharge Orders/Prescriptions Prescriptions: New oxycodone-acetaminophen [Percocet] 5-325 mg tablet 1 tab PO Q6H PRN (Reason: pain) 7 Days Qty: 20 RF: 0 naproxen [naproxen] 500 MG tablet 500 mg PO BID PRN PRN (Reason: Pain) Qty: 30 RF: 1 No Action ferrous sulfate 324 mg (65 mg iron) tablet,delayed release (DR/EC) 324 mg PO BID RF: 0 DayQuil Sinus Pressure/Pain 30-200 mg Tablet 1 tab PO Q4H PRN (Reason: Headache) RF: 0 Referrals / Follow Up: Jaspreet Cottrell MD [Primary Care Provider] - Disposition Disposition (needs filled in before D/C Order can be placed): Home, Self Care
[2021-08-25] MEDS: Lactated Ringers 1,000 ML 70 ML IV (10:20)
[2021-08-25] MEDS: Ketorolac 30 MG/ML Syringe IV (11:34)
[2021-08-25 12:05] LABS: Absolute Lymphocyte Count 0.44 X10^3/uL (0.83-4.51); Absolute Neutrophil Count 8.5 X10^3/uL (2.0-7.7); Basophil# 0.01 X10^3/uL; Basophil% 0.1 % (0-1); Hematocrit 37.4 % (37-47); Hemoglobin 12.1 g/dL (12.0-15.0); Lymphocyte # 0.44 X10^3/ul (0.83-4.51); Lymphocyte % 4.9 % (19-41); Mean Corp Hgb Conc 32.4 g/dL (32-36); Mean Corpuscular Hgb 24.6 pg (27.0-32.0); Mean Platelet Vol. 10.7 fl (6.2-12.0); Monocyte# 0.04 X10^3/uL; Monocyte% 0.4 % (0-10); NRBC Flagged by Analyzer 0 % (0-5); Neutrophil # 8.49 X10^3/uL (2.7-7.7); Neutrophil % 94.2 % (47-70); POSITIVE DIFFERENTIAL YES; Platelet Count 232 K/mm3 (150-450); RBC Distribution Width CV 18.6 % (11.6-14.6); RBC Distribution Width SD 51.5 fl (35.1-43.9); Red Blood Count 4.92 M/mm3 (4.2-5.4)
[2021-08-25 12:09] LABS: Differential Indicated SCAN CRITERIA MET
[2021-08-25 12:36] LABS: Differential Comment SCANNED
[2021-08-25] MEDS: Lactated Ringers 1,000 ML 999 ML IV (14:30)
== END 2021-08-25 16:07 | disposition home or self-care (01) ==
LOC: SDC 05:38 → AC 05:39
PROVIDERS: Anesthesiology; PCP Internal Medicine; Referring Provider Obstetrics & Gynecology; Visit Provider Obstetrics & Gynecology
PROC: 0UT9FZZ Resection of Uterus, Via Natural or Artificial Opening With Percutaneous Endoscopic Assistance (ICD-10-PCS; CPT 58550; principal; 2021-08-25 07:20)
DX: N87.9 Dysplasia of cervix uteri, unspecified (principal); N72 Inflammatory disease of cervix uteri; D50.0 Iron deficiency anemia secondary to blood loss (chronic); E11.9 Type 2 diabetes mellitus without complications
CPT/HCPCS: 00944; 58550; 36415; 81025; 82962; 85025; 88307; J7120; J2405

== ENCOUNTER → 2022-07-13 | Outpatient (CLI) | payer BC, SELFPAY ==
[2022-07-13 15:18] LABS: Absolute Lymphocyte Count 1.35 X10^3/uL (0.83-4.51); Absolute Neutrophil Count 3.2 X10^3/uL (2.0-7.7); Basophil# 0.02 X10^3/uL; Basophil% 0.4 % (0-1); Eosinophil# 0.09 X10^3/uL; Eosinophils% 1.7 % (0-5); Hematocrit 42.1 % (37-47); Lymphocyte # 1.35 X10^3/ul (0.83-4.51); Lymphocyte % 26.2 % (19-41); Mean Corp Hgb Conc 33.3 g/dL (32-36); Mean Corpuscular Hgb 27.3 pg (27.0-32.0); Mean Corpuscular Volume 82.2 fL (81-99); Mean Platelet Vol. 11.5 fl (6.2-12.0); Monocyte# 0.46 X10^3/uL; Monocyte% 8.9 % (0-10); NRBC Flagged by Analyzer 0 % (0-5); Neutrophil # 3.23 X10^3/uL (2.7-7.7); Neutrophil % 62.6 % (47-70); Platelet Count 234 K/mm3 (150-450); RBC Distribution Width CV 14.3 % (11.6-14.6); RBC Distribution Width SD 42.8 fl (35.1-43.9); Red Blood Count 5.12 M/mm3 (4.2-5.4); White Blood Count 5.2 K/mm3 (4.4-11.0)
[2022-07-13 15:47] LABS: ALB/GLOB Ratio 1.1 RATIO (0.9-2.4); AST(SGOT) 10 U/L (15-37); Alanine Aminotransfer ALT/SGPT 24 U/L (13-56); Albumin, Serum 3.9 g/dL (3.2-5.0); Alkaline Phosphatase 52 U/L (45-117); Anion Gap 7 (5-15); BUN 13 mg/dL (7-18); BUN/Creat Ratio 15.1 RATIO (10-20); Calcium,Total 8.8 mg/dL (8.5-10.1); Chloride 106 mmol/L (98-107); Cholesterol 132 mg/dL (200); Creatinine, Serum 0.86 mg/dL (0.55-1.02); EST Glomerular Filtration Rate 81 mL/min (>60); Est Glom Filt Rate - Afr Amer 98 mL/min (>60); Globulin 3.6 g/dL (2.2-4.2); Glucose 86 mg/dL (74-106); High Density Lipoprotein 50 mg/dL; Potassium 4.1 mmol/L (3.5-5.1); Protein, Total 7.5 g/dL (6.4-8.2); Sodium Level 140 mmol/L (136-145); T4 Free Direct 0.89 ng/dL (0.76-1.46); Thyroid Stim Hormone (TSH) 2.12 uIU/mL (0.358-3.74); Triglycerides 136 mg/dL; Very Low Density Lipoprotein 27 mg/dL (5-40)
[2022-07-13 15:56] LABS: Hemoglobin A1c 5.3 % (3.8-5.6)
== END | disposition home or self-care (01) ==
LOC: BIMLAB 14:26
PROVIDERS: PCP Internal Medicine; Referring Provider Physician Assistant; Visit Provider Physician Assistant
DX: Z00.00 Encounter for general adult medical examination without abnormal findings (principal); Z86.32 Personal history of gestational diabetes; R51.9 Headache, unspecified; E78.00 Pure hypercholesterolemia, unspecified; Z13.29 Encounter for screening for other suspected endocrine disorder
CPT/HCPCS: 36415; 80053; 80061; 83036; 84439; 84443; 85025

== ENCOUNTER → 2023-10-29 | Outpatient (CLI) | payer OTHER, SELFPAY ==
--- OUTSIDE RECORDS SUMMARY | 2023-10-29 08:27 | XMS RPT_ITS | CCD ---
Author Name Unknown Address [address] [place] [address] Organization [facility] Care Team Providers Care Transportation Clerk Name Role Phone TRILL, MAYRA C Unavailable Unavailable TRILL, MAYRA C Unavailable Unavailable NO REFERRING DR Unavailable Unavailable TRILL, MAYRA C Unavailable Unavailable TRILL, MAYRA C Unavailable Unavailable NO REFERRING DR Unavailable Unavailable TRILL, MAYRA C (SCHOOL BUS DRIVER/TEACHER ASSISTANT) Unavailable Unavailab le TRILL, MAYRA C (SCHOOL BUS DRIVER/TEACHER ASSISTANT) Unavailable Unavailab le TRILL, MAYRA C (SCHOOL BUS DRIVER/TEACHER ASSISTANT) Unavailable Unavailab le TRILL, MAYRA C (SCHOOL BUS DRIVER/TEACHER ASSISTANT) Unavailable Unavailab le Allergies Allergy Classification Reported Allergen(s) Allergy Type Date of Onset Reaction(s) Facility (1 source) penicillin; Translations: [PENICILLIN] Drug Allergy 04-05-2017 [facility] Other [facility] Problems Active Problems Problem Classification Problem Date Documented Da te Episodic/Chronic Unclassified (1 source) Unknown / UNK(Unknown) Onset: 04-14-2017 Past or Other Problems Problem Classification Problem Date Documented Da te Episodic/Chronic Heart valve disorders (3 sources) Cardiac murmur, unspecified; Translations: [CARDIAC MURMUR UNSPECIFI] Onset: 04-28-2017 Episodic Unclassified (1 source) R01.1 Onset: 04-14-2017 Results Test Name Value Interpretation Reference Range Facil ity Encounters Encounter Date Encounter Type Care Provider Facility Start: 04-28-2017 End: 04-29-2017 Ambulatory MAYRA C TRILL Facility:[facility] Start: 04-14-2017 End: 04-15-2017 Ambulatory MAYRA C TRILL Facility:[facility] Payers Date Payer Category Payer Policy ID Unknown [id number] Summary Purpose Family History No Family History Records FoundNo Family History Records FoundNo Family History Records Found Advance Directives No Advanced Directives Records FoundNo Advanced Directives Records FoundNo Advanced Directives Records Found Additional Source Comments INFORMATION SOURCE (unrecogn ized section and content) DATE CREATED AUTHOR AUTHOR'S YASHIRA ATION 04/12/2018 [facility] DATE CREATED AUTHOR AUTHOR'S ORGANCRISSY ATION 11/26/2020 [facility] FOR RECORDS PERTAINING TO PATIENTS WHO ARE OR HAVE BEEN ENROLLED IN A CHEMICAL DEPENDENCY/SUBSTANCEABUSE PROGRAM, SOME INFORMATION MAY BE OMITTED. This clinical summary was aggregated from multiple sources. Caution should be exercised in using it in the provision of clinical care. This summary normalizes information from multiple sources, and as a consequence, information in this document may materially change the coding, format and clinical context of patient data. In addition, data may be omitted in some cases. CLINICAL DECISIONS SHOULD BE BASED ON THE PRIMARY CLINICAL RECORDS. [facility] [employer] provides no warranty or guarantee of the accuracy or completeness of information in this document.
[2023-10-29 09:32] LABS: Anion Gap 6 (5-15); BUN 11 mg/dL (7-18); BUN/Creat Ratio 12.9 RATIO (10-20); Calcium,Total 9.2 mg/dL (8.5-10.1); Chloride 110 mmol/L (98-107); Creatinine, Serum 0.86 mg/dL (0.55-1.02); EST Glomerular Filtration Rate 81 mL/min (>60); Est Glom Filt Rate - Afr Amer 98 mL/min (>60); Glucose 70 mg/dL (74-106); Potassium 3.9 mmol/L (3.5-5.1); Sodium Level 141 mmol/L (136-145)
[2023-10-29 11:07] LABS: Hemoglobin A1c 4.9 % (3.8-5.6)
[2023-11-02 19:09] LABS: QNTFERON TB Mitogen Value > 10.00 IU/mL (.); QNTFERON TB Nil Value 0 IU/mL (.); QNTFERON TB1+ Ag Value 0 IU/mL (.); QNTFERON TB2+ Ag Value 0.01 IU/mL (.); QNTIFERON TB Positive Criteria Negative (Negative)
== END | disposition home or self-care (01) ==
LOC: LAB 08:25
PROVIDERS: PCP Internal Medicine; Referring Provider Nurse Practitioner; Visit Provider Nurse Practitioner
DX: Z00.8 Encounter for other general examination (principal); Z86.32 Personal history of gestational diabetes
CPT/HCPCS: 36415; 80048; 83036; 86480

== ENCOUNTER → 2025-03-07 | Outpatient (CLI) | payer OTHER, SELFPAY ==
[2025-03-07 15:31] LABS: Absolute Lymphocyte Count 0.76 X10^3/uL (0.83-4.51); Absolute Neutrophil Count 8.3 X10^3/uL (2.0-7.7); Basophil# 0.02 X10^3/uL; Basophil% 0.2 % (0-1); Eosinophil# 0.05 X10^3/uL; Eosinophils% 0.5 % (0-5); Hematocrit 43.6 % (37-47); Hemoglobin 14.7 g/dL (12.0-15.0); Lymphocyte # 0.76 X10^3/ul (0.83-4.51); Lymphocyte % 7.8 % (19-41); Mean Corp Hgb Conc 33.7 g/dL (32-36); Mean Corpuscular Hgb 29.3 pg (27.0-32.0); Mean Platelet Vol. 12.5 fl (6.2-12.0); Monocyte# 0.57 X10^3/uL; Monocyte% 5.8 % (0-10); NRBC Flagged by Analyzer 0 % (0-5); Neutrophil # 8.34 X10^3/uL (2.7-7.7); Neutrophil % 85.3 % (47-70); Platelet Count 238 K/mm3 (150-450); RBC Distribution Width CV 12.8 % (11.6-14.6); RBC Distribution Width SD 40.5 fl (35.1-43.9); Red Blood Count 5.01 M/mm3 (4.2-5.4); White Blood Count 9.8 K/mm3 (4.4-11.0)
[2025-03-07 18:23] LABS: ALB/GLOB Ratio 1.7 RATIO (0.9-2.4); AST(SGOT) 18 U/L (<=31); Alanine Aminotransfer ALT/SGPT 16 U/L (<=34); Albumin, Serum 4.7 g/dL (3.5-5.0); Alkaline Phosphatase 51 U/L (35-104); Anion Gap 12 (5-15); BUN 12 mg/dL (4-19); BUN/Creat Ratio 14.4 RATIO (10-20); Calcium,Total 9.5 mg/dL (7.6-11.0); Chloride 105 mmol/L (98-108); Creatinine, Serum 0.84 mg/dL (0.70-1.20); EST Glomerular Filtration Rate 93 (>60); Globulin 2.8 g/dL (2.2-4.2); Glucose 91 mg/dL (70-99); Potassium 3.9 mmol/L (3.3-5.1); Protein, Total 7.4 g/dL (5.9-8.4); Sodium Level 140 mmol/L (133-145); Total Bilirubin 0.36 mg/dL (0.00-1.30)
[2025-03-09 04:07] LABS: C-Peptide 5.3 ng/mL (1.1-4.4); Insulin Level 25.2 uIU/mL (2.6-24.9)
[2025-03-12 10:08] LABS: ANTINUCLEAR ANTIBODIES DIRECT Negative (Negative)
== END | disposition home or self-care (01) ==
LOC: BIMLAB 12:24
PROVIDERS: PCP Internal Medicine; Referring Provider Physician Assistant; Visit Provider Physician Assistant
DX: E16.2 Hypoglycemia, unspecified (principal); R53.83 Other fatigue
CPT/HCPCS: 36415; 80053; 83525; 84443; 84681; 85025; 86038; 86225

== ENCOUNTER → 2025-05-27 | Outpatient (CLI) | payer OTHER, SELFPAY ==
--- NOTE | 2025-05-27 13:19 | CT_ITS ---
PROCEDURE: CT ABD/PELVIS W/WO CONTRAST 05/27/2025 REASON FOR EXAM: R/O INSULINOMA TECHNIQUE: CT ABD/PELVIS W/WO CONTRAST Coronal and Sagittal reconstruction series were provided. CONTRAST: Isovue 300 VOLUME: 95 mL One or more dose reduction techniques were used (e.g., Automated exposure control, adjustment of the mA and/or kV according to patient size, use of iterative reconstruction technique. RADIATION DOSE SUMMARY: CTDlvol: 60 mGy DLP: 886 mGycm COMPARISON: No FINDINGS: Clear lung bases. Normal heart size. Unremarkable liver,. Small gallstone. Unremarkable pancreas, spleen. Bilateral adrenal gland nodules measuring under 1 cm, favoring benign etiology. Bilateral nephrolithiasis, renal stones measuring up to 6 mm. No hydronephrosis. Normal bladder. Status post hysterectomy. Normal right ovary. Involuting left ovarian cyst. Small pelvic free fluid. No retroperitoneal or pelvic adenopathy. No free air. Nondistended bowel. Normal appendix. No acute large bowel findings. No acute abdominal wall findings. CT/CT Abd/Pelvis W/WO Contrast IMPRESSION: No acute abdominopelvic findings. No evidence for pancreatic tumor. Reading Location: [place] [id number]
--- NOTE | 2025-05-27 13:19 | CT_ITS ---
PROCEDURE: CT ABD/PELVIS W/WO CONTRAST 05/27/2025 REASON FOR EXAM: R/O INSULINOMA TECHNIQUE: CT ABD/PELVIS W/WO CONTRAST Coronal and Sagittal reconstruction series were provided. CONTRAST: Isovue 300 VOLUME: 95 mL One or more dose reduction techniques were used (e.g., Automated exposure control, adjustment of the mA and/or kV according to patient size, use of iterative reconstruction technique. RADIATION DOSE SUMMARY: CTDlvol: 60 mGy DLP: 886 mGycm COMPARISON: No FINDINGS: Clear lung bases. Normal heart size. Unremarkable liver,. Small gallstone. Unremarkable pancreas, spleen. Bilateral adrenal gland nodules measuring under 1 cm, favoring benign etiology. Bilateral nephrolithiasis, renal stones measuring up to 6 mm. No hydronephrosis. Normal bladder. Status post hysterectomy. Normal right ovary. Involuting left ovarian cyst. Small pelvic free fluid. No retroperitoneal or pelvic adenopathy. No free air. Nondistended bowel. Normal appendix. No acute large bowel findings. No acute abdominal wall findings. CT/CT Abd/Pelvis W/WO Contrast IMPRESSION: No acute abdominopelvic findings. No evidence for pancreatic tumor. Reading Location: [place] [address]
== END | disposition home or self-care (01) ==
LOC: CT 13:17
PROVIDERS: PCP Internal Medicine; Referring Provider Physician Assistant; Visit Provider Physician Assistant
DX: E16.1 Other hypoglycemia (principal)
CPT/HCPCS: 74178; Q9967

== ENCOUNTER → 2025-06-24 | Outpatient (CLI) | payer OTHER, SELFPAY ==
[2025-06-24 12:54] LABS: PTHIN 34 pg/mL (11-61)
[2025-06-24 12:56] LABS: AST(SGOT) 15 U/L (<=31); Alanine Aminotransfer ALT/SGPT 18 U/L (<=34); Albumin, Serum 4.5 g/dL (3.5-5.0); Alkaline Phosphatase 40 U/L (35-104); Anion Gap 12 (5-15); BUN 11 mg/dL (4-19); BUN/Creat Ratio 13.3 RATIO (10-20); Calcium,Total 9.3 mg/dL (7.6-11.0); Carbon Dioxide 23.5 mmol/L (21.0-32.0); Chloride 105 mmol/L (98-108); Globulin 2.6 g/dL (2.2-4.2); Glucose 84 mg/dL (70-99); Potassium 4.0 mmol/L (3.3-5.1); Uric Acid 4.8 mg/dL (2.6-6.0)
== END | disposition home or self-care (01) ==
LOC: BIMLAB 08:01
PROVIDERS: PCP Physician Assistant; Referring Provider Physician Assistant; Visit Provider Physician Assistant
DX: E16.1 Other hypoglycemia (principal); N20.0 Calculus of kidney; K80.20 Calculus of gallbladder without cholecystitis without obstruction; E16.2 Hypoglycemia, unspecified
CPT/HCPCS: 36415; 80053; 83525; 83970; 84550; 84681